=== PATIENT | male | born 1945 | race Caucasian/White ===

== ENCOUNTER 2021-12-30 10:28 | Inpatient (IN) ==
--- NOTE | 2021-12-30 11:23 | Emergency Department Note ---
History of Present Illness General Chief complaint: Throat Pain Stated complaint: SWOLLEN THROAT, HARD TO SWALLOW Time Seen by Provider: 12/30/21 11:03 Source: patient History of Present Illness Provider complaint: Difficulty swallowing Onset (ago): year(s) Location: neck Radiation: non-radiation Pain Consistency: + constant Maximum Pain Intensity: 4 Quality: + other (Difficulty swallowing) Relieved By: + none Associated symptoms: + chest pain, + headaches (Slight headache from vomiting), + nausea/vomiting and + shortness of breath; no cough or no fever/chills This is a 76-year-old male who presents with difficulty swallowing. He states that he has a history of throat cancer in 2000. He had radiation therapy and surgery as well as chemotherapy and was treated. About 3 to 4 years ago he started having difficulty swallowing pills. He had a choking episode in [place]. He was evaluated and found to have scar tissue leading to difficulty swallowing. The patient has had difficulty swallowing since then and has to be very careful when he eats. Over the past 2 days his swallowing got worse and he is unable to keep down any liquids or solids. He tries to swallow them but they come right back up. He drinks liquid and they come out of his nose. He has not been able to keep anything down. He does complain of chest pain which started 2 days ago in the lower portion of his chest. He cannot describe it. He also states that he has difficulty taking a deep breath. He denies any fevers or cold symptoms. He has no pain to his neck or his throat. He denies any abdominal pain or diarrhea or black or bloody stools. He did urinate prior to coming here but that his urine was dark. He has a prior history of carotid endarterectomy. He denies any history of CAD but his daughter states that he has a "weak heart." He has a history of hypertension. He has not been able to take his pills for the past 2 days. Home Medications Medication Instructions Recorded Confirmed Type Lactobacillus acidophilus 0 mmu cells PO QAM 12/30/21 12/30/21 History (Acidophilus) ascorbic acid (vitamin C) 1,000 mg 0 mg PO QAM 12/30/21 12/30/21 History tablet (Vitamin C) atorvastatin 40 mg tablet 40 mg PO QAM 12/30/21 12/30/21 History carvedilol 3.125 mg tablet 3.125 mg PO BID 12/30/21 12/30/21 History cholecalciferol (vitamin D3) 25 0 mcg PO QAM 12/30/21 12/30/21 History mcg (1,000 unit) capsule (Vitamin D3) clopidogrel 75 mg tablet 75 mg PO QDL 12/30/21 12/30/21 History ezetimibe 10 mg tablet 10 mg PO HS 12/30/21 12/30/21 History famotidine 20 mg tablet 20 mg PO HS 12/30/21 12/30/21 History levothyroxine 100 mcg tablet 100 mcg PO DAILYBB 12/30/21 12/30/21 History (Euthyrox) spironolactone 25 mg tablet 12.5 mg PO QAM 12/30/21 12/30/21 History sulfamethoxazole 800 1 tab PO QAM 12/30/21 12/30/21 History mg-trimethoprim 160 mg tablet vitamin B complex 1 tab PO QAM 12/30/21 12/30/21 History Allergies Allergy/AdvReac Type Severity Reaction Status Date / Time No Known Allergies Allergy Unverified 12/30/21 14:02 Past Med/Surg History Medical History (Updated 12/30/21 @ 16:58 by Chaz Martin MD) History of colon cancer History of throat cancer Hypertension Throat cancer Surgical History (Updated 12/30/21 @ 13:54 by Wilton Linares MD) H/O carotid endarterectomy History of bilateral knee replacement History of partial colectomy Social History Smoking Status: Former smoker Second Hand Exposure: No; Do You Dip or Chew Tobacco: No; Hx Alcohol Use: No Hx Substance Use: No Preferred Language: [place] Communication Ability: Effective Deputy Editor In Chief Required: No Beliefs That Will Affect Care: None Current Living Situation: Family Other Information That Helps Us Care for You: No Feels Safe at Home: Yes Safety Concerns: Feels Safe At This Time Assistive Devices: Denture - Upper, Denture - Lower, Glasses, Hearing Aid - Bilateral and Hearing Aid - Left Review of Systems See HPI for pertinent positives & negatives. and A total of 10 systems reviewed and were otherwise negative Physical Exam Vital Signs Vital Signs - 24 hr 12/30/21 10:29 12/30/21 10:32 12/30/21 12:00 Temperature 36.7 C Temperature Source Temporal Artery Scan Pulse Rate 54 L Pulse Rate [Apical] 108 H 79 Respiratory Rate 18 18 18 Respiratory Effort / Characteristics Non-Labored Non-Labored Respiratory Depth Normal Normal Blood Pressure 153/84 H Blood Pressure [Left Arm] 173/109 H 163/102 H Blood Pressure Mean 107 Blood Pressure Mean [Left Arm] 130 122 Pulse Oximetry 94 93 93 Oxygen Delivery Method Room Air Room Air Sepsis Recent Fever Within 48 Hours No Sepsis New/Unexplained Change in Mental Status No Sepsis Action Taken by Nursing No Action Required Constitutional: Vital signs reviewed. Eyes: Pupils are equal round reactive to light. Conjunctiva are noninjected. ENT: Pharynx is clear without erythema or exudate. Mucous membranes are dry. Postsurgical changes left neck. No tenderness to the larynx. No masses palpable. No erythema or swelling to the neck. Bony hypertrophy to the proximal left clavicle without tenderness or erythema. Neck supple without meningeal signs. Respiratory: Clear to auscultation bilaterally. Breath sounds are equal bilaterally. Cardiovascular: Regular rate and rhythm. No rubs or gallops. GI: Soft, nondistended and nontender. Bowel sounds are present. Musculoskeletal: No peripheral edema. No lower extremity tenderness. Integumentary: No cyanosis. or jaundice. Neurological: The patient is awake and alert. No focal deficits. Psychiatric: Normal affect. Course Administered Medications Potassium Chloride/Sodium Chloride (Normal Saline W/20 Meq Kcl) 20 meq in 1,000 mls @ 100 mls/hr IV .Q10H ALEJANDRO; Protocol Stop: 12/31/21 23:29 Last Admin: 12/30/21 18:14 Dose: 100 mls/hr Documented by: [id number] Ampicillin Sodium/Sulbactam Sodium 3,000 mg/ Sodium Chloride 108 mls @ 216 mls/hr IV Q6H ALEJANDRO; Protocol Stop: 01/06/22 17:59 Last Admin: 12/30/21 18:19 Dose: 216 mls/hr Documented by: [id number] Discontinued Medications Sodium Chloride (Nss) 500 mls @ 125 mls/hr IV .Q4H ALEJANDRO Stop: 01/29/22 11:14 Last Infusion: 12/30/21 18:22 Dose: 0 mls/hr Documented by: [id number] Admin: 12/30/21 15:35 Dose: 125 mls/hr Documented by: [id number] Infusion: 12/30/21 13:35 Dose: 0 mls/hr Documented by: [id number] Admin: 12/30/21 11:34 Dose: 125 mls/hr Documented by: [id number] Piperacillin Sod/Tazobactam Sod (Zosyn) 4.5 gm in 120 mls @ 240 mls/hr IV NOW ONE Stop: 12/30/21 13:11 Last Infusion: 12/30/21 14:16 Dose: 0 mls/hr Documented by: [id number] Admin: 12/30/21 13:35 Dose: 240 mls/hr Documented by: [id number] Potassium Chloride/Sodium Chloride (Nss+Kcl 20 Meq 1000ml) Confirm Administered Dose 20 meq IV .STK-MED ONE Stop: 12/30/21 17:12 Last Admin: 12/30/21 18:14 Dose: Not Given Documented by: [id number] Critical Care Time Critical Care Time: Yes Total Critical Care Time: 35 I have personally spent approximately 35 minutes of critical care time in the direct management of this patient. This includes bedside care, interpretation of diagnostic studies, and testing, discussion with consultants, patient, and family members, and other required patient management activities. These minutes are in excess of all separately billable procedures. Medical Decision Making Differential Diagnosis Throat cancer, adhesions, mediastinal mass, esophagitis, dehydration, Boerhaave syndrome Medical Records Attestation: I reviewed the patient's medical records. I did perform a limited focused review of portions of the patient's old chart on the electronic medical record. The patient has had no prior visits to this hospital. Home Medications Current Medication List: was personally reviewed by me Laboratory Data Attestation: I reviewed the patient's lab results. Result diagrams: 12/30/21 11:25 12/30/21 11:25 Lab Results 12/30/21 12/30/21 12/30/21 Range/Units 11:25 11:25 11:25 WBC 24.96 H (4.8-10.8) K/uL RBC 3.99 L (4.7-6.1) M/uL Hgb 12.8 L (14.0-18.0) g/dL Hct 37.9 L (42-52) % MCV 95.0 (80-100) fL MCH 32.1 (25-34) pg MCHC 33.8 (32-36) g/dL RDW Std Deviation 49.5 H (36.4-46.3) fL RDW Coeff of [place]ber[place] 14.3 (11.5-14.5) % Plt Count 178 (130-400) K/uL MPV 12.2 H (7.4-10.4) fL Immature Gran % (Auto) 0.4 % Neut % (Auto) 90.1 % Lymph % (Auto) 3.4 % Blount % (Auto) 6.1 % Eos % (Auto) 0.0 % Baso % (Auto) 0.0 % Neut # (Auto) 22.50 H (1.4-6.5) K/uL Lymph # (Auto) 0.84 L (1.2-3.4) K/uL Blount # (Auto) 1.52 H (0.11-0.59) K/uL Eos # (Auto) 0.00 (0-0.5) K/uL Baso # (Auto) 0.01 (0-0.2) K/uL Immature Gran # (Auto) 0.09 H (0.00-0.02) K/uL PT 12.5 H (9.0-12.0) Seconds INR 1.2 H (0.9-1.1) APTT 31.2 H (21.0-31.0) Seconds PTT Ratio 1.1 Sodium 140 (136-145) mmol/L Potassium 4.6 (3.5-5.1) mmol/L Chloride 104 (98-107) mmol/L Carbon Dioxide 26 (21-32) mmol/L Anion Gap 10 (3-11) BUN 39 H (6-23) mg/dl Creatinine 1.72 H (0.6-1.4) mg/dl Est Cr Clr Drug Dosing 37.7 ml/min Est GFR ( Amer) 43.2 ml/min Est GFR (Non-Af Amer) 37.3 ml/min BUN/Creatinine Ratio 22.7 H (10-20) Glucose 116 H (70-99(Fasting)) mg/dl Lactate (0.4-2.0) mmol/L Calcium 10.0 (8.5-10.1) mg/dl Total Bilirubin 0.9 (0.2-1.0) mg/dl AST 22 (13-39) U/L ALT 20 (7-52) U/L Alkaline Phosphatase 52 (34-104) U/L Troponin I High Sens 61.9 H* (0-20) pg/ml Total Protein 7.4 (6.0-8.3) gm/dl Albumin 4.0 (3.4-5.0) gm/dl Globulin 3.4 (2.5-4.0) gm/dl Albumin/Globulin Ratio 1.2 (0.9-2) SARS-CoV-2, RNA, NAAT (NEGATIVE) 12/30/21 12/30/21 Range/Units 12:48 13:02 WBC (4.8-10.8) K/uL RBC (4.7-6.1) M/uL Hgb (14.0-18.0) g/dL Hct (42-52) % MCV (80-100) fL MCH (25-34) pg MCHC (32-36) g/dL RDW Std Deviation (36.4-46.3) fL RDW Coeff of Kymberly (11.5-14.5) % Plt Count (130-400) K/uL MPV (7.4-10.4) fL Immature Gran % (Auto) % Neut % (Auto) % Lymph % (Auto) % Blount % (Auto) % Eos % (Auto) % Baso % (Auto) % Neut # (Auto) (1.4-6.5) K/uL Lymph # (Auto) (1.2-3.4) K/uL Blount # (Auto) (0.11-0.59) K/uL Eos # (Auto) (0-0.5) K/uL Baso # (Auto) (0-0.2) K/uL Immature Gran # (Auto) (0.00-0.02) K/uL PT (9.0-12.0) Seconds INR (0.9-1.1) APTT (21.0-31.0) Seconds PTT Ratio Sodium (136-145) mmol/L Potassium (3.5-5.1) mmol/L Chloride (98-107) mmol/L Carbon Dioxide (21-32) mmol/L Anion Gap (3-11) BUN (6-23) mg/dl Creatinine (0.6-1.4) mg/dl Est Cr Clr Drug Dosing ml/min Est GFR ( Amer) ml/min Est GFR (Non-Af Amer) ml/min BUN/Creatinine Ratio (10-20) Glucose (70-99(Fasting)) mg/dl Lactate 1.2 (0.4-2.0) mmol/L Calcium (8.5-10.1) mg/dl Total Bilirubin (0.2-1.0) mg/dl AST (13-39) U/L ALT (7-52) U/L Alkaline Phosphatase (34-104) U/L Troponin I High Sens (0-20) pg/ml Total Protein (6.0-8.3) gm/dl Albumin (3.4-5.0) gm/dl Globulin (2.5-4.0) gm/dl Albumin/Globulin Ratio (0.9-2) SARS-CoV-2, RNA, NAAT NEGATIVE (NEGATIVE) Imaging Data Radiologist's Impression: Chest CT 12/30/21 11:13 CT chest diagnostic wo con CT DOSE: 574.94 mGycm CLINICAL HISTORY: 76 years-old Male with cp eval for mass. Acute atypical chest pain TECHNIQUE: Multiaxial CT images of the chest were performed without contrast. A dose lowering technique was utilized adhering to the principles of ALARA. COMPARISON: CT soft tissue neck of same day FINDINGS: No pathologically enlarged lymph nodes are identified. The heart is mildly enlarged with extensive coronary artery calcifications. Atherosclerosis of the thoracic aorta without aneurysm. No pneumothorax or pleural effusion. Reticular interstitial opacities with intermixed extensive centrilobular groundglass and consolidative opacities are noted within a mid to lower lung zone prominent distribution with relative sparing of the upper lung zones. Mild associated t racheobronchial secretions with bibasilar bronchial wall thickening. Mildly distended fluid/debris filled esophagus. Intraluminal radiodense structure within the mid esophageal lumen may represent a pill fragment. Cholecystectomy. Calcified granulomata of the liver. Gynecomastia. Indeterminate subcutaneous 1.9 cm soft tissue attenuating lesion of the left posterior should er. Degenerative changes of the shoulders and spine. IMPRESSION: 1. Extensive mid to lower lung zone reticular nodular opacities are suggestive of an infectious or inflammatory pneumonitis. Follow-up imaging following treatment course is recommended. 2. No pleural effusion or lymphadenopathy. 3. Mild tracheobronchial secretions. ACT 112: Negative or not required by law. Electronically signed by: Zak Puri M.D. 12/30/2021 12:29 PM Soft Tissue Neck CT 12/30/21 11:13 CT soft tissue neck wo con CLINICAL HISTORY: throat CA eval for mass/recurrence Technique: Axial CT images of the soft tissues of the neck were obtained following intravenous administration of 100 cc of Omnipaque 300. Automated dose lowering techniques and/or adjustment according to patient size were utilized for this exam. CT DOSE: 360.38 mGycm Comparison: None available at the time of this dictation. Findings: There are no masses or inflammatory changes seen within the soft tissues of the neck. The oropharynx, hypopharynx, larynx, and trachea are patent. No enlarged lymph nodes are seen. The thyroid is diminutive. Bilateral carotid stents are seen. Prominence of the esophagus is incidentally noted. Imaged portions of the brain parenchyma are unremarkable. The paranasal sinuses and mastoid air cells are normal in appearance. Impression: 1. No findings are seen to suggest recurrent or metastatic disease. The trachea and esophagus are patent. 2. Prominence of the esophagus is nonspecific, clinical correlation is recomm ended to exclude achalasia or dysmotility. ACT 112: Negative or not required by law. Electronically signed by: Tyler Lopez M.D. 12/30/2021 12:07 PM ECG Data Attestation: I personally reviewed and interpreted this ECG as follows: Indication: + chest pain Rate (beats per minute): 89 Rhythm: + normal sinus ECG Intervals/blocks: + Left bundle branch block ECG [place]: + Left axis deviation ECG Findings: + PVCs (Bigeminy), + Bigeminy and + Other (No concordant ST elevations) Comparison ECG Date: no prior available MDM Narrative I did evaluate the patient as noted above. The patient has a history of throat cancer and has developed severe dysphagia for the past 3 days for both solids and liquids. He also developed chest pain after vomiting. IV access was established. I did treat him with normal saline IV. I did place an order for continuous cardiac monitoring. The monitor showed normal sinus rhythm with frequent PVCs in the pattern of bigeminy at a rate of 78 bpm. I did order and personally review the patient's 12-lead EKG as described above. He has a left bundle branch block with bigeminy. No old EKGs available for comparison. I did order a urine analysis. I did order and review the patient's blood work as noted in the electronic medical record. His white count shows a significant elevation at 25,000. Hemoglobin is 12.8. Platelet count is 178. CMP shows acute kidney injury with a BUN of 39 and a creatinine of 1.7. High-sensitivity troponin is elevated at 62. LFTs are unremarkable. I did order a CT of the soft tissue neck and chest. I did review the images myself as well as the radiology report as described above. There is no evidence of recurrence of his throat cancer. He does have significant debris in the esophagus with mild distention. He also has significant inflammatory infectious findings in the lower lungs. I did discuss the test results with the patient and his daughters. I did order blood cultures and he was given IV Zosyn for aspiration pneumonia. His troponin is minimally elevated. I suspect his chest pain is likely from pneumonia. He does have an abnormal EKG but I do not have an old one to compare with. I did order a second troponin which is currently pending. I did discuss the case with the hospitalist and case investigator. He will require repeat cardiac biomarkers and GI consultation. While waiting for bed the nurse informed me that he had oxygen desaturation. I did go to see the patient. Is placed on 2 L of oxygen via nasal cannula. He states he is breathing much better than he was before. He is speaking more freely as well. His throat shows no signs of angioedema. He subjectively feels much better. We will continue to keep him on oxygen. I did inform the hospitalist. Impression & Plan REUBEN (acute kidney injury), Aspiration pneumonia, Dysphagia, Elevated troponin, Bigeminy, Abnormal ECG, Hypoxia Discharge Plan Visit Data Chief Complaint: Throat Pain Stated Complaint: SWOLLEN THROAT, HARD TO SWALLOW ED Provider: Chaz Martin Discharge Problem: REUBEN (acute kidney injury), Aspiration pneumonia, Dysphagia, Elevated troponin, Bigeminy, Abnormal ECG, Hypoxia Patient Disposition: Admitted As Inpatient Discharge Instructions Interventions: ED Discharge Assessment Last Done: 12/30/21 16:59 Discharge Problem: Aspiration pneumonia Qualifiers: Aspiration pneumonia type: due to vomit Laterality: bilateral Lung location: lo wer lobe of lung Qualified Code(s): J69.0 - Pneumonitis due to inhalation of food and vomit Dysphagia Qualifiers: Dysphagia type: unspecified Qualified Code(s): R13.10 - Dysphagia, unspecified
[2021-12-30] MEDS: SODIUM CHLORIDE 0.9% 500 ML IV SCH ×2 (11:34→15:35)
[2021-12-30 11:49] LABS: Hematocrit (blood only) 37.9 % (42-52); Hemoglobin 12.8 g/dL (14.0-18.0); Mean Corpuscular Hemoglobin 32.1 pg (25-34); Mean Corpuscular Hgb Conc 33.8 g/dL (32-36); Mean Platelet Volume 12.2 fL (7.4-10.4); Platelet Count 178 K/uL (130-400); RDW Coefficient of Variation 14.3 % (11.5-14.5); RDW Standard Deviation 49.5 fL (36.4-46.3); Red Blood Count 3.99 M/uL (4.7-6.1); White Blood Count 24.96 K/uL (4.8-10.8)
[2021-12-30 11:59] LABS: INR 1.2 (0.9-1.1); Partial Thromboplastin Ratio 1.1; Partial Thromboplastin Time 31.2 Seconds (21.0-31.0); Prothrombin Time 12.5 Seconds (9.0-12.0)
--- NOTE | 2021-12-30 12:08 | CT Scan Report ---
CT soft tissue neck wo con CLINICAL HISTORY: throat CA eval for mass/recurrence Technique: Axial CT images of the soft tissues of the neck were obtained following intravenous admini stration of 100 cc of Omnipaque 300. Automated dose lowering techniques and/or adjustment according t o patient size were utilized for this exam. CT DOSE: 360.38 mGycm Comparison: None available at the time of this dictation. Findings: There are no masses or inflammatory changes seen within the soft tissues of the neck. The oropharynx, hypopharynx, larynx, and trachea are patent. No enlarged lymph nodes are seen. The thyroid is diminu tive. Bilateral carotid stents are seen. Prominence of the esophagus is incidentally noted. Imaged portions of the brain parenchyma are unremarkable. The paranasal sinuses and mastoid air cell s are normal in appearance. Impression: 1. No findings are seen to suggest recurrent or metastatic disease. The trachea and esophagus are pa tent. 2. Prominence of the esophagus is nonspecific, clinical correlation is recommended to exclude achala yaneli or dysmotility. ACT 112: Negative or not required by law. Electronically signed by: Tyler Lopez M.D. 12/30/2021 12:07 PM
[2021-12-30 12:09] LABS: Basophils # (auto) 0.01 K/uL (0-0.2); Immature Granulocytes # (auto) 0.09 K/uL (0.00-0.02); Immature Granulocytes % (auto) 0.4 %; Lymphocytes # (auto) 0.84 K/uL (1.2-3.4); Lymphocytes % (auto) 3.4 %; Monocytes # (auto) 1.52 K/uL (0.11-0.59); Monocytes % (auto) 6.1 %; Neutrophils % (auto) 90.1 %
[2021-12-30 12:18] LABS: Troponin I High Sensitivity 61.9 pg/ml (0-20)
[2021-12-30 12:24] LABS: Albumin Globulin Ratio 1.2 (0.9-2); BUN Creatinine Ratio 22.7 (10-20); Bilirubin,Total 0.9 mg/dl (0.2-1.0); Creatinine Clr Calc Pharmacy 37.7 ml/min; Est GFR (African American) 43.2 ml/min; Est GFR (Non-African American) 37.3 ml/min; Globulin 3.4 gm/dl (2.5-4.0); Potassium 4.6 mmol/L (3.5-5.1); Total Protein 7.4 gm/dl (6.0-8.3)
--- NOTE | 2021-12-30 12:32 | CT Scan Report ---
CT chest diagnostic wo con CT DOSE: 574.94 mGycm CLINICAL HISTORY: 76 years-old Male with cp eval for mass. Acute atypical chest pain TECHNIQUE: Multiaxial CT images of the chest were performed without contrast. A dose lowering techni que was utilized adhering to the principles of ALARA. COMPARISON: CT soft tissue neck of same day FINDINGS: No pathologically enlarged lymph nodes are identified. The heart is mildly enlarged with extensive co ronary artery calcifications. Atherosclerosis of the thoracic aorta without aneurysm. No pneumothorax or pleural effusion. Reticular interstitial opacities with intermixed extensive centrilobular ground glass and consolidative opacities are noted within a mid to lower lung zone prominent distribution wi th relative sparing of the upper lung zones. Mild associated tracheobronchial secretions with bibasil ar bronchial wall thickening. Mildly distended fluid/debris filled esophagus. Intraluminal radiodense structure within the mid esop hageal lumen may represent a pill fragment. Cholecystectomy. Calcified granulomata of the liver. Gyne comastia. Indeterminate subcutaneous 1.9 cm soft tissue attenuating lesion of the left posterior shou lder. Degenerative changes of the shoulders and spine. IMPRESSION: 1. Extensive mid to lower lung zone reticular nodular opacities are suggestive of an infectious or in flammatory pneumonitis. Follow-up imaging following treatment course is recommended. 2. No pleural effusion or lymphadenopathy. 3. Mild tracheobronchial secretions. ACT 112: Negative or not required by law. Electronically signed by: Zak Puri M.D. 12/30/2021 12:29 PM
[2021-12-30] MEDS ORDERED: PIPERACILLIN/TAZOBACTAM 4.5 GM/120 ML BAG IV ONE (12:42)
--- NOTE | 2021-12-30 13:07 | History & Physical Report ---
Date of Service December 30, 2021 Assessment & Plan (1) Dysphagia: (2) Elevated troponin: (3) Bigeminy: (4) H/O carotid endarterectomy: (5) Hypertension: (6) History of throat cancer: (7) Aspiration pneumonia: (8) REUBEN (acute kidney injury): Plan: Wilton is a 76-year-old male with a past medical history of carotid endarterectomy and stenting, hx of throat cancer with surgery/chemo/radiation in 2000 in [place], hypertension, and unclear cardiac history who receives medical care in [place] who is visiting family in [place] and who presents with dysphagia the inability to swallow liquids/solids/pills in the last 4 days. Dysphagia Complete inability to swallow solids, liquids, or pills for the last 4 days Patient does endorse some gradually worsening tolerance to swallowing, but was able to eat half a cheeseburger without difficulty approximately 1 week ago -No evidence of recurrence of malignancy on imaging Soft Tissue neck CT: 1. No findings are seen to suggest recurrent or metastatic disease. The trachea and esophagus are patent. 2. Prominence of the esophagus is nonspecific, clinical correlation is recommended to exclude achalasia or dysmotility. CT-Ch: Mildly distended fluid/debris filled esophagus. Intraluminal radiodense structure within the mid esophageal lumen may represent a pill fragment. Cholecystectomy. Calcified granulomata of the liver. Gynecomastia. Indeterminate subcutaneous 1.9 cm soft tissue attenuating lesion of the left posterior shoulder. Degenerative changes of the shoulders and spine. Extensive mid to lower lung zone reticular nodular opacities are suggestive of an infectious or inflammatory pneumonitis. Follow-up imaging following treatment course is recommended. No pleural effusion or lymphadenopathy. Mild tracheobronchial secretions. N.p.o. - GI Consutled. Last EGD/[place] ~2 years ago for ?GIB in [place], no ulcers or abnormalities noted per pt Aspiration pneumonia With leukocytosis to 24, CT findings as above In the setting of dysphagia Put on Zosyn in ER - Continued on Unasyn No hypoxia Chest discomfort Epigastric Unclear cardiac history per discussion with patient. He thinks he may or may not have needed a valve stent, was following with his provider in [place] for this. Does not think he has any coronary disease, is not sure if he has had any abnormalities on EKG before. [place] is reaching out for med reconciliation and baseline EKG and cardiac notes if available from provider in [place] Is on Plavix therapy narrowed from dual antiplatelet therapy related to carotid stents per patient. No history of cardiac stents Troponin slightly elevated on admission,? Demand ischemia in the setting of dehydration EKG shows sinus rhythm with ventricular bigeminy and left bundle branch block. No concordant ST elevations or excessively dis-concordant ST elevations appreciated Troponin trended, attempting to obtain EKG for comparison as noted Carvedilol 3.125 mg held while NPO. MTP Every 6 hours as needed IV order placed for beta-magi withdrawal while intolerant of p.o. ASA 81 mg and isosorbide were stopped as outpatient Continue Plavix when able to tolerate p.o. 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 We will convert to Synthroid IV at 30% dose reduction while n.p.o. HTN - MTP as above, meds held while NPO as above. 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 If I bend over just runs out my mouth. Not eating nothing." Rapidly worsening 4 days ago. Prior to that was having some difficulty progressive with solids and liquids and clearing spit. Seems to have been building up for a few weeks but really got worse quickly starting on Tuesday with compelte intolerance to food, water, and pills. Regurgitates food immediately on trying, denies N/V. Last time he could eat/drink relatively OK was ~1 week ago, was able to eat a cheeseburger (half) withotu n/v/pain. Patient is visiting from [place]. History of throat cancer 2000, chemo/radiation/surgery. Went well at the time. Was done in [place]. +Nose dripping constnatly. Can't cough well. Cannot clear saliva well with swallowing. No nausea/vomiting No diarrhea/constipation + weight loss over the last several months with very poor intake. Endorses mild shortness of breath and fatigue, both seems constant in the last day Endorses mild constant epigastric pain with a little in his chest unchagned in the last day or two Last endoscopy in 2020 in [place] for a GIB (no ulcers were seen) in [place]. Hx of valve disease, not sure of the details. Told he has a 'weak heart and could use a stend in the valve or heart, but not sure. Has 2 carotid stents.' No history of heart attacks Pt is not sure was his normal EKG is like PCP is Dr. Ayala in [place], [place]. Meds by phone review: Levothyroxine 100mcg Nicola 25mg Ezetimbe 10mg Atorvastatin 40mg Carvedilol 3.125mg Isosorbide mono 20 Aspirin 81 STOPPED for plaavix monotherapy. plavix 75mg enalapril 5mg WAS STOPPED. Isosorbide Mononitrate was STOPPED. Bilat knee replacement 1994. Carotid stents. Colon cancer with resection at [place]. Has fmaily in [place] [facility]. No PCP here. Medical History: Reviewed Medications: REviewed pts record (has phone list available at bedside). Surgical History: Reviewed Allergies: Reviewed Social History: No tobacco product use. No alcohol use, no RR drug use. Code Status: Surrogate would be Tyra Lancaster . DNR/DNI per patient. Past Med/Surg History Medical History (Updated 12/30/21 @ 13:54 by Wilton Linares MD) History of colon cancer History of throat cancer Hypertension Throat cancer Surgical History (Updated 12/30/21 @ 13:54 by Wilton Linares MD) H/O carotid endarterectomy History of bilateral knee replacement History of partial colectomy Social History Smoking Status: Former smoker Feels Safe at Home: Yes Review of Systems Review of Systems: All systems reviewed & are unremarkable except as noted in HPI & below Physical Exam Physical Exam: General: A&Ox3. NAD. Cooperative. HEENT: Atraumatic, normocephalic. Visionan dhearing grossly intact, [place]. PERLAA. Pulm: Coarse in the bases bilaterally, otherwise CTAB A&P. -wheezes, -rales, - rhonchi. Symmetrical chest rise. No increase in work of breathing. No respiratory distress. Cardiac: RRR, +sm. Radial pulses intact and symmetrical. Abdominal: Nontender, nondistended, soft. BS present. Ext: Warm, Dry. Trace pitting edema of ankles bilaterally chronic per pt. Post operative knee incisions well healed. Results & Data Results & Data ([facility]) Vital Signs (Past 12 Hours) Vital Signs Temp Pulse Pulse Resp BP BP Pulse Ox 12/30/21 12:00 79 18 163/102 H 93 12/30/21 10:32 36.7 C 54 L 18 153/84 H 93 12/30/21 10:29 108 H 18 173/109 H 94 PG Care Time/CCT Total # of Minutes Spent Total Time Spent with Patient: Total time spent is greater than 50% in coordination of care (as documented) at patient's floor/unit and/or counseling patient: Coding Level of Care Code 88436 Initial Inpt Care Lvl 3 Diagnoses Dysphagia R13.10 Dysphagia type: unspecified Elevated troponin R77.8 Bigeminy I49.8 H/O carotid endarterectomy Z98.890 Hypertension I10 History of throat cancer Z85.819 Aspiration pneumonia J69.0 Aspiration pneumonia type: due to vomit Laterality: bilateral Lung location: lower lobe of lung REUBEN (acute kidney injury) N17.9 (1) Dysphagia Dysphagia type: unspecified Qualified Code(s): R13.10 - Dysphagia, unspecified (2) Aspiration pneumonia Aspiration pneumonia type: due to vomit Laterality: bilateral Lung location: lower lobe of lung Qualified Code(s): J69.0 - Pneumonitis due to inhalation of food and vomit
[2021-12-30] MEDS ORDERED: METOPROLOL TARTRATE 1 MG/ML VIAL IV PRN (16:52)
[2021-12-30] MEDS ORDERED: NSS+KCL 20 MEQ 1000ML IV ONE (17:11)
[2021-12-30] MEDS: NSS + 20MEQ KCL 20 MEQ/1,000 ML BAG IV SCH (18:14)
[2021-12-30] MEDS: AMPICILLIN/SULBACTAM SOD 3,000 MG in 0.9 % SODIUM CHLORIDE 100 ML IV SCH (18:19)
[2021-12-30] MEDS ORDERED: NITROGLYCERIN SL 0.4 MG/TAB TAB SL PRN (18:27)
[2021-12-30] MEDS: LEVOTHYROXINE SODIUM 75 MCG in SYRINGE 0 ML IV SCH (19:33)
[2021-12-30] MEDS: HEPARIN SOD 5,000 UNIT/0.5 ML VIAL SQ SCH (21:54)
[2021-12-31] MEDS: AMPICILLIN/SULBACTAM SOD 3,000 MG in 0.9 % SODIUM CHLORIDE 100 ML IV SCH ×5 (00:23→22:40)
[2021-12-31] MEDS: NSS + 20MEQ KCL 20 MEQ/1,000 ML BAG IV SCH ×2 (04:32→18:02)
[2021-12-31 05:01] LABS: BUN Creatinine Ratio 27.5 (10-20); Calcium 8.9 mg/dl (8.5-10.1); Creatinine Clr Calc Pharmacy 49.5 ml/min; Est GFR (Non-African American) 51.8 ml/min; Potassium 4.1 mmol/L (3.5-5.1)
[2021-12-31 05:23] LABS: Basophils # (auto) 0.01 K/uL (0-0.2); Basophils % (auto) 0.1 %; Eosinophils # (auto) 0.02 K/uL (0-0.5); Eosinophils % (auto) 0.1 %; Hematocrit (blood only) 34.1 % (42-52); Hemoglobin 11.2 g/dL (14.0-18.0); Immature Granulocytes # (auto) 0.05 K/uL (0.00-0.02); Immature Granulocytes % (auto) 0.3 %; Lymphocytes # (auto) 1.03 K/uL (1.2-3.4); Lymphocytes % (auto) 6.9 %; Mean Corpuscular Hemoglobin 31.5 pg (25-34); Mean Corpuscular Hgb Conc 32.8 g/dL (32-36); Mean Corpuscular Volume 95.8 fL (80-100); Mean Platelet Volume 12.3 fL (7.4-10.4); Monocytes # (auto) 1.06 K/uL (0.11-0.59); Monocytes % (auto) 7.1 %; Neutrophils # (auto) 12.74 K/uL (1.4-6.5); Neutrophils % (auto) 85.5 %; Platelet Count 162 K/uL (130-400); RDW Coefficient of Variation 14.2 % (11.5-14.5); RDW Standard Deviation 49.9 fL (36.4-46.3); Red Blood Count 3.56 M/uL (4.7-6.1); White Blood Count 14.91 K/uL (4.8-10.8)
[2021-12-31] MEDS: HEPARIN SOD 5,000 UNIT/0.5 ML VIAL SQ SCH ×3 (06:02→21:14)
--- NOTE | 2021-12-31 09:50 | Gastrointestinal Consultation ---
Date of Consultation December 31, 2021 Assessment & Plan (1) Dysphagia: If patient is cleared by cardiology, can move forward with EGD for further evaluation today. Keep NPO for now. Supervising Physician Co-Signing Physician Notes I personally evaluated the patient and agree with the findings as documented by KWESI Carlson Exam: Constitutional: WD/WN, vitals as above General: EOM intact bilaterally Neck: normal visual inspection Respiratory: normal respiratory effort, lungs clear to auscultation Cardiovascular: RRR, no murmur, no edema Gastrointestinal: abdomennormal to inspection, nondistended, soft, nontender, no hepatosplenomegaly Musculoskeletal: no cyanosis, head normal to inspection Skin: no rashes, warm and dry Neurologic: moves all extremities Psychiatric: A and O x3, euthymic affect Proceed with EGD. risks/benefits and procedure discussed with patient, who agrees to proceed History of Present Illness Reason for Consultation: Dysphagia Attending Physician: Wilton Linares MD History of Present Illness Patient is a 76 yo male with PMH of throat cancer s/p radiation, chemo, surgery along with history of hypertension and carotid endarterectomy who presented to [facility] ED with complaints of difficulty swallowing. The patient admits that these issues have been chronically progressing, but 2 days ago he had a significant issue with swallowing food and liquid. He notes regurgitation of ingested material. He notes liquid coming out of his nose when he swallows. He notes he developed chest pain and difficulty taking deep breaths. This prompted him to seek ED evaluation. He denies fevers, chills, or sweats. He denies pain in his throat/neck. He denies abdominal pain, hematemesis, hematochezia. He notes he thinks he had an EGD in 2020 for a bleeding concern, but cannot remember the details of this. He does take Plavix daily. He denies PPI use. He denies heartburn or reflux. Upon admission, he was noted to have LBBB changes on EKG which were apparently seen on other EGDs in the past. His high sensitivity troponin was elevated to 59. CT soft tissues of the neck indicated a patent esophagus and trachea but noted prominence of the esophagus. CT chest demonstrates a concern for pneumonitis. Cardiology has been consulted for further assessment. Allergies Allergy/AdvReac Type Severity Reaction Status Date / Time No Known Allergies Allergy Unverified 12/30/21 14:02 Home Medications Medication Instructions Recorded Confirmed Type Lactobacillus acidophilus 0 mmu cells PO QAM 12/30/21 12/30/21 History (Acidophilus) ascorbic acid (vitamin C) 1,000 mg 0 mg PO QAM 12/30/21 12/30/21 History tablet (Vitamin C) atorvastatin 40 mg tablet 40 mg PO QAM 12/30/21 12/30/21 History carvedilol 3.125 mg tablet 3.125 mg PO BID 12/30/21 12/30/21 History cholecalciferol (vitamin D3) 25 0 mcg PO QAM 12/30/21 12/30/21 History mcg (1,000 unit) capsule (Vitamin D3) clopidogrel 75 mg tablet 75 mg PO QDL 12/30/21 12/30/21 History ezetimibe 10 mg tablet 10 mg PO HS 12/30/21 12/30/21 History famotidine 20 mg tablet 20 mg PO HS 12/30/21 12/30/21 History levothyroxine 100 mcg tablet 100 mcg PO DAILYBB 12/30/21 12/30/21 History (Euthyrox) spironolactone 25 mg tablet 12.5 mg PO QAM 12/30/21 12/30/21 History sulfamethoxazole 800 1 tab PO QAM 12/30/21 12/30/21 History mg-trimethoprim 160 mg tablet vitamin B complex 1 tab PO QAM 12/30/21 12/30/21 History Patient History Medical History History of colon cancer History of throat cancer Hypertension Throat cancer Surgical History H/O carotid endarterectomy History of bilateral knee replacement History of partial colectomy Social History Smoking Status: Former smoker Second Hand Exposure: No; Do You Dip or Chew Tobacco: No; Hx Alcohol Use: No Hx Substance Use: No Preferred Language: Lithuanian Communication Ability: Effective Equipment Lead Required: No Beliefs That Will Affect Care: None marital status: Current Living Situation: Family How many Children do You have: 5 Other Information That Helps Us Care for You: No Feels Safe at Home: Yes Safety Concerns: Feels Safe At This Time Assistive Devices: Cane and Walker Review of Systems Constitutional: no fever and no chills Respiratory: no cough and no dyspnea Gastrointestinal: + dysphagia; no abdominal pain, no nausea, no vomiting, no coffee ground emesis and no melena Psychiatric: no problem reported Physical Exam Constitutional: well developed Respiratory: normal respiratory effort Cardiovascular: Rate/Rhythm: regular rate Gastrointestinal (Abdomen): normal bowel sounds, soft, nontender, no hepatosplenomegaly Musculoskeletal: Head/Neck/Chest: normocephalic Psychiatric: Orientation: alert and oriented x 3 Results & Data ([facility]) Vital Signs (Past 12 Hours) Vital Signs Temp Pulse Pulse Resp BP Pulse Ox 12/31/21 07:26 79 12/31/21 07:13 36.4 C L 64 18 144/78 H 92 12/30/21 23:25 75 12/30/21 23:08 36.5 C 79 20 124/66 92 PG Care Time/CCT Total # of Minutes Spent Total Time Spent with Patient: Total time spent is greater than 50% in coordination of care (as documented) at patient's floor/unit and/or counseling patient: Coding Level of Care Code 73026 Initial Inpt Care Lvl 3 Diagnoses Dysphagia R13.10 Dysphagia type: unspecified (1) Dysphagia Dysphagia type: unspecified Qualified Code(s): R13.10 - Dysphagia, unspecified
--- NOTE | 2021-12-31 12:29 | Hospitalist Progress Note ---
Date of Service December 31, 2021 Assessment & Plan (1) Dysphagia: Plan: Wilton is a 76-year-old male with a past medical history of carotid endarterectomy and stenting, hx of throat cancer with surgery/chemo/radiation in 2000 in [place], hypertension, and unclear cardiac history who receives medical care in [place] who is visiting family in [place] and who presents with dysphagia the inability to swallow liquids/solids/pills in the last 4 days. 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 No findings are seen to suggest recurrent or metastatic disease. The trachea and esophagus are patent. 2. Prominence of the esophagus is nonspecific, clinical correlation is recommended to exclude achalasia or dysmotility. CT-Ch: Mildly distended fluid/debris filled esophagus. Intraluminal radiodense structure within the mid esophageal lumen may represent a pill fragment. Cholecystectomy. Calcified granulomata of the liver. Gynecomastia. Indeterminate subcutaneous 1.9 cm soft tissue attenuating lesion of the left posterior shoulder. Degenerative changes of the shoulders and spine. Extensive mid to lower lung zone reticular nodular opacities are suggestive of an infectious or inflammatory pneumonitis. Follow-up imaging following treatment course is recommended. No pleural effusion or lymphadenopathy. Mild tracheobronchial secretions. N.p.o. -Discomfort improved morning of 12/31 Pending EGD 12/31 Aspiration pneumonia With leukocytosis to 24, downtrending rapidly, - CT findings as above In the setting of dysphagia/regurgitation - Continue Unasyn No hypoxia Chest discomfort Epigastric discomfort has resolved this morning Per review of [place] provider's notes patient with a history of multivessel CAD, was not recommended for cardiac stenting per patient although cardiology note is not available for full review Is on Plavix therapy narrowed from dual antiplatelet therapy related to carotid stents ; No history of cardiac stents Troponin slightly elevated on admission, down trended consistent with volume depletion EKG shows sinus rhythm with ventricular bigeminy and left bundle branch block. No concordant ST elevations or excessively dis-concordant ST elevations appreciated EKG from PCPs office obtained, also shows bigeminy/LBBB similar to current Carvedilol 3.125 mg held while NPO. MTP Every 6 hours as needed IV order plac ed for beta-magi withdrawal while intolerant of p.o. ASA 81 mg and isosorbide were stopped as outpatient Continue Plavix when able to tolerate p.o. 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 We will convert to Synthroid IV at 30% dose reduction while n.p.o. HTN - MTP as above, meds held while NPO as above. 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 No chest pain/chest pressure. Did have an episode of emesis yesterday after which she felt much better. Is breathing comfortably and can take full deep breaths without any discomfort this morning. Has not tried food/liquids, but notes still has trouble swallowing saliva. Is anticipating EGD today. Denies bleeding. Review of Systems Review of Systems: All systems reviewed & are unremarkable except as noted in Subjective Physical Exam Physical Exam: General: A&Ox3. NAD. Cooperative. HEENT: Atraumatic, normocephalic. Visiona/hearing grossly intact, [place]. PERLAA. Pulm: Improved but still coarse in the bases bilaterally and improving with inspiration; otherwise CTAB A&P. -wheezes, -rales, -rhonchi. Symmetrical chest rise. No increase in work of breathing. No respiratory distress. Cardiac: RRR, +sm. Radial pulses intact and symmetrical. Abdominal: Nontender, nondistended, soft. BS present. Ext: Warm, Dry. Trace pitting edema of ankles bilaterally chronic per pt. Post operative knee incisions well healed. Results & Data Results & Data ([facility]) Vital Signs (Past 12 Hours) Vital Signs Temp Pulse Pulse Resp BP Pulse Ox 12/31/21 11:18 36.3 C L 50 L 18 155/66 H 96 12/31/21 07:26 79 12/31/21 07:13 36.4 C L 64 18 144/78 H 92 PG Care Time/CCT Total # of Minutes Spent Total Time Spent with Patient: Total time spent is greater than 50% in coordination of care (as documented) at patient's floor/unit and/or counseling patient: Coding Level of Care Code 47884 Subseq Hosp Care Lvl 2 Diagnoses Dysphagia R13.10 Dysphagia type: unspecified Elevated troponin R77.8 Bigeminy I49.8 H/O carotid endarterectomy Z98.890 Hypertension I10 History of throat cancer Z85.819 Aspiration pneumonia J69.0 Aspiration pneumonia type: due to vomit Laterality: bilateral Lung location: lower lobe of lung REUBEN (acute kidney injury) N17.9 (1) Dysphagia Dysphagia type: unspecified Qualified Code(s): R13.10 - Dysphagia, unspecified (2) Aspiration pneumonia Aspiration pneumonia type: due to vomit Laterality: bilateral Lung location: lower lobe of lung Qualified Code(s): J69.0 - Pneumonitis due to inhalation of food and vomit
[2021-12-31] MEDS ORDERED: LIDOCAINE 2% 2 ML VIAL/AMP(20MG/ML) INFIL ONE (14:15)
[2021-12-31] MEDS ORDERED: fentaNYL citrate 100 MCG/2 ML VIAL ONE (14:15)
[2021-12-31] MEDS ORDERED: PROPOFOL IV EMULSION 10 MG/ML 20 ML VIAL IV ONE (14:15)
[2021-12-31] MEDS ORDERED: SUCCINYLCHOLINE CHLORIDE 20 MG/ML 10 ML VIAL IV ONE (14:15)
[2021-12-31] MEDS ORDERED: ROCURONIUM BROMIDE 10 MG/ML 5 ML VIAL IV ONE (14:15)
[2021-12-31] MEDS ORDERED: PHENYLEPHRINE HCL 10 MG/ML VIAL ONE (14:15)
[2021-12-31] MEDS ORDERED: ePHEDrine sulfate 50 MG/ML AMP ONE (14:16)
--- NOTE | 2021-12-31 14:50 | Anesthesiology Consultation ---
Date of Service December 31, 2021 Assessment & Plan Chart Review Chart Review: Pending: Refer to Additional Notes / Consult section RIsk/benefit discussed Reasonable to move forward with urgent procedure Consults Requested medical appreciated input ASA [id number] Proposed Anesthesia Anesthesia Type: General Risk / Benefits Reviewed With: PT / POA / Parent / Guardian, Accepts Plan and Informed Consent Obtained Additional Comments: RSI induction for airway protection History Surgery Operation Date: 12/31/21 13:40 Proposed Procedures p Esophagogastroduodenoscopy - Pedro López MD Operation Date: 12/31/21 16:00 Proposed Procedures p Esophagogastroduodenoscopy Dr. López - ePdro López MD Height/Weight Height: 5 ft 11 in Weight: 80 kg Allergies Allergy/AdvReac Type Severity Reaction Status Date / Time No Known Allergies Allergy Unverified 12/30/21 14:02 Medications Home Medications Medication Instructions Recorded Confirmed Last Taken Lactobacillus acidophilus 0 mmu cells PO QAM 12/30/21 12/30/21 12/28/21 (Acidophilus) ascorbic acid (vitamin C) 1,000 mg 0 mg PO QAM 12/30/21 12/30/21 12/28/21 tablet (Vitamin C) atorvastatin 40 mg tablet 40 mg PO QAM 12/30/21 12/30/21 12/28/21 carvedilol 3.125 mg tablet 3.125 mg PO BID 12/30/21 12/30/21 12/28/21 cholecalciferol (vitamin D3) 25 0 mcg PO QAM 12/30/21 12/30/21 12/28/21 mcg (1,000 unit) capsule (Vitamin D3) clopidogrel 75 mg tablet 75 mg PO QDL 12/30/21 12/30/21 12/28/21 ezetimibe 10 mg tablet 10 mg PO HS 12/30/21 12/30/21 12/28/21 famotidine 20 mg tablet 20 mg PO HS 12/30/21 12/30/21 12/28/21 levothyroxine 100 mcg tablet 100 mcg PO DAILYBB 12/30/21 12/30/21 12/28/21 (Euthyrox) spironolactone 25 mg tablet 12.5 mg PO QAM 12/30/21 12/30/21 12/28/21 sulfamethoxazole 800 1 tab PO QAM 12/30/21 12/30/21 12/28/21 mg-trimethoprim 160 mg tablet vitamin B complex 1 tab PO QAM 12/30/21 12/30/21 12/28/21 Active Medications Generic Name Dose Route Start Last Admin Trade Name Douglas PRN Reason Stop Dose Admin Heparin Sodium (Porcine) 5,000 units 12/30/21 22:00 12/31/21 06:02 Heparin Sod 5,000 Unit/0.5 Ml Vial SQ 01/29/22 21:59 5,000 units Q8 ALEJANDRO Administration Potassium Chloride/Sodium Chloride 20 meq in 1,000 mls @ 100 mls/hr 12/30/21 17:30 12/31/21 04:32 Normal Saline W/20 Meq Kcl IV 12/31/21 23:29 100 mls/hr .Q10H ALEJANDRO Administration Protocol Ampicillin Sodium/Sulbactam 108 mls @ 216 mls/hr 12/30/21 18:00 12/31/21 12:54 Sodium 3,000 mg/ Sodium IV 01/06/22 17:59 Infused Chloride Q6H ALEJANDRO Infusion Protocol Levothyroxine Sodium 75 mcg/ 3.75 mls @ 1.875 mls/min 12/30/21 19:00 12/30/21 19:33 Syringe IV 01/29/22 18:59 1.875 mls/min Q72H ALEJANDRO Administration Protocol NPO Date Last Intake of Fluids: 12/31/21 Last Intake of Fluids Comment: fluid in esophagus-full stomach Past Medical History Medical History History of colon cancer History of throat cancer Hypertension Throat cancer Exercise / Class Metabolic Activity II 4-5 Yardwork/Stairs/Walk up hill Past Surgical History Surgical History H/O carotid endarterectomy History of bilateral knee replacement History of partial colectomy Past Anesthesia History No Hx of Anesthesia Complications and Difficult Airway hx of oropharyngeal CA- will use indirect laryngoscopy (video)for intubation History of PONV No Hx of PONV and No Hx of Motion Sickness Social History Smoking Status: Former smoker tobacco type: cigarettes Do You Dip or Chew Tobacco: No Hx Alcohol Use: No Hx Substance Use: No Review of Systems ROS Unobtainable: All systems reviewed & are unremarkable except as noted in HPI & below Constitutional: + weight loss Eyes: as per Subjective / HPI Ear, Nose, Mouth, Throat: as per Subjective / HPI Respiratory: as per Subjective / HPI Cardiovascular: as per Subjective / HPI Additional Comments: elevated troponin Medicine feel related to volume status. Discussed risk/benefit of proceeding without cardiology involvement at this point. Likely medically optimized for procedure. Family and patient in agreement. Appreciated medicine input. No recent cardiac Sx Gastrointestinal: as per Subjective / HPI and + dysphagia Genitourinary (Male): + as per Subjective / HPI Integumentary: as per Subjective / HPI Neurologic: as per Subjective / HPI Psychiatric: as per Subjective / HPI Endocrine: as per Subjective / HPI Hematologic / Lymphatic: as per Subjective / HPI Physical Exam Vital Signs Last Vital Signs Temp 36.3 C L 12/31/21 11:18 Pulse 50 L 12/31/21 11:18 Resp 18 12/31/21 11:18 BP 155/66 H 12/31/21 11:18 Pulse Ox 96 12/31/21 11:18 Constitutional + cachectic ENMT Mouth: + edentulous Thyromental Distance: < 3.5 Finger Breadths Mallampati Class: II some soft tisssue abnl in oropharynx (uvula distorted/absent) Neck + limited neck extension Respiratory normal respiratory effort Cardiovascular Rate/Rhythm: regular rhythm irregular rhythm Musculoskeletal Spine: + limited cervical ROM Extremities: extremities normal to inspection Neurologic moves all extremities Psychiatric Orientation: alert and oriented x 3 Testing Laboratory Results 12/31/21 04:03 12/31/21 04:03 PT 12.5 Seconds (9.0-12.0) H 12/30/21 11:25 INR 1.2 (0.9-1.1) H 12/30/21 11:25 APTT 31.2 Seconds (21.0-31.0) H 12/30/21 11:25 12/30/21 12:58 Aerobic Blood Culture - Preliminary Blood No growth in Aerobic bottle after 24 hours. Anaerobic Blood Culture - Preliminary No growth in Anaerobic bottle after 24 hours. 12/30/21 12:50 Aerobic Blood Culture - Preliminary Blood No growth in Aerobic bottle after 24 hours. Anaerobic Blood Culture - Preliminary No growth in Anaerobic bottle after 24 hours.
--- NOTE | 2021-12-31 15:19 | GI REPORT ---
Patient Name: Wilton Lancaster Procedure Date: 12/31/2021 2:16 PM Date of : 1945 Admit Type: Inpatient Age: 76 Gender: Male Attending MD: Pedro López MD Procedure: Upper GI endoscopy Providers: Pedro López MD Referring MD: Referred Self, Wilton Linares Md Indications: Dysphagia, Abnormal CT of the GI tract Medicines: Monitored Anesthesia Care Complications: No immediate complications. Estimated blood loss: None. Estimated Blood Loss: Estimated blood loss: none. Procedure: Pre-Anesthesia Assessment: - Prior Anticoagulants: The patient has taken no previous anticoagulant or antiplatelet agents. - ASA Grade Assessment: IV - A patient with severe systemic disease that is a constant threat to life. After obtaining informed consent, the endoscope was passed under direct vision. Throughout the procedure, the patient's blood pressure, pulse, and oxygen saturations were monitored continuously. The Endoscope was introduced through the mouth, and advanced to the second part of duodenum. The upper GI endoscopy was accomplished without difficulty. The patient tolerated the procedure well. Findings: No endoscopic abnormality was evident in the esophagus to explain the patient's complaint of dysphagia. It was decided, however, to proceed with dilation of the entire esophagus. A guidewire was placed and the scope was withdrawn. Dilation was performed with a Savary dilator with no resistance at 42 Fr. The dilation site was examined following endoscope reinsertion and showed no change. Estimated blood loss: none. Diffuse moderate inflammation characterized by erosions and erythema was found in the stomach. Biopsies were taken with a cold forceps for Helicobacter pylori testing. Estimated blood loss: none. The duodenal bulb and second portion of the duodenum were normal. Bilious fluid was found in the gastric fundus. Impression: - No endoscopic esophageal abnormality to explain patient's dysphagia. Esophagus dilated. Dilated. - Gastritis. Biopsied. - Normal duodenal bulb and second portion of the duodenum. - Bilious gastric fluid. Recommendation: - [facility]. - NPO today. obtain speech evaluation -outpatient esophageal manometry to further evaluate - Await pathology results. Pedro López MD 12/31/2021 3:19:37 PM This report has been signed electronically. Note Initiated On: 12/31/2021 2:16 PM Number of Addenda: 0 I attest to the content of the Intraoperative Record and orders documented therein, exceptions below {[id number]}
--- NOTE | 2021-12-31 15:21 | Procedure Note ---
Procedure Note Date of Service December 31, 2021 Note brief procedure note/post op note EGD findings: normal esophagus, dilated with savary 42 Fr. erosions, bx'd. recs: NPO speech eval esophageal manometry as outpt. supportive care f/u path Pedro López MD Gastroenterology Coding
[2021-12-31] MEDS ORDERED: ONDANSETRON INJ 2 MG/ML 2 ML VIAL ONE (15:35)
[2021-12-31] MEDS ORDERED: DEXAMETHASONE SOD INJ 4 MG/ML VIAL ONE (15:35)
--- NOTE | 2021-12-31 16:07 | Anesthesiology Progress Note ---
Date of Service December 31, 2021 Anesthesia Post Procedure Vital Signs Vital Signs: Temp Pulse Pulse Resp BP Pulse Ox 12/31/21 15:50 82 22 128/75 97 12/31/21 15:40 81 18 182/80 H 98 12/31/21 15:30 87 23 187/114 H 100 12/31/21 15:23 97.3 F L 90 8 L 180/77 H 97 12/31/21 14:35 98.6 F 71 19 204/107 H 96 12/31/21 11:18 97.3 F L 50 L 18 155/66 H 96 12/31/21 07:26 79 12/31/21 07:13 97.5 F L 64 18 144/78 H 92 12/30/21 23:25 75 12/30/21 23:08 97.7 F 79 20 124/66 92 12/30/21 19:52 97.5 F L 94 H 18 175/74 H 95 12/30/21 17:58 97.5 F L 84 20 163/76 H 95 12/30/21 17:31 77 18 134/58 L 93 12/30/21 16:55 76 18 142/82 H 93 12/30/21 16:43 92 Transfer of Care Handoff Completed per policy Notes Mental Status: alert / awake / arousable and participated in evaluation Patient Amnestic to Procedure: Yes Nausea / Vomiting: adequately controlled Pain: adequately controlled Airway Patency, RR, SpO2: stable & adequate BP & HR: stable & adequate Hydration State: stable & adequate Anesthetic Complications: no major complications apparent and Pt Satisfied with anesthetic care
[2021-12-31] MEDS: hydrALAZINE HCL 20 MG/ML VIAL IV PRN (17:07)
--- NOTE | 2021-12-31 17:54 | XCELERA ---
[id number]
--- NOTE | 2021-12-31 22:39 | Electrocardiogram Report ---
Test Reason : Blood Pressure : / mmHG Vent. Rate : 089 BPM Atrial Rate : 089 BPM P-R Int : 160 ms QRS Dur : 136 ms QT Int : 402 ms P-R-T Axes : 000 -33 094 degrees QTc Int : 489 ms Sinus rhythm with frequent Premature ventricular complexes in a pattern of bigeminy Left axis deviation Left bundle branch block Abnormal ECG No previous ECGs available Confirmed by Lionel Ovalles ([id number]) on 12/31/2021 10:38:30 PM Referred By: REFERRED SELF Confirmed By:Lionel Ovalles
[2022-01-01] MEDS: HEPARIN SOD 5,000 UNIT/0.5 ML VIAL SQ SCH ×3 (05:07→19:52)
[2022-01-01] MEDS: AMPICILLIN/SULBACTAM SOD 3,000 MG in 0.9 % SODIUM CHLORIDE 100 ML IV SCH ×4 (05:07→23:20)
[2022-01-01 07:52] LABS: Hematocrit (blood only) 38.3 % (42-52); Hemoglobin 12.7 g/dL (14.0-18.0); Immature Granulocytes # (auto) 0.04 K/uL (0.00-0.02); Immature Granulocytes % (auto) 0.4 %; Lymphocytes # (auto) 0.71 K/uL (1.2-3.4); Lymphocytes % (auto) 6.3 %; Mean Corpuscular Hemoglobin 31.6 pg (25-34); Mean Corpuscular Hgb Conc 33.2 g/dL (32-36); Mean Corpuscular Volume 95.3 fL (80-100); Mean Platelet Volume 12.5 fL (7.4-10.4); Monocytes # (auto) 0.38 K/uL (0.11-0.59); Monocytes % (auto) 3.3 %; Neutrophils # (auto) 10.23 K/uL (1.4-6.5); Platelet Count 192 K/uL (130-400); Red Blood Count 4.02 M/uL (4.7-6.1); White Blood Count 11.36 K/uL (4.8-10.8)
[2022-01-01 08:12] LABS: Albumin Globulin Ratio 1.2 (0.9-2); Albumin Level 3.7 gm/dl (3.4-5.0); BUN Creatinine Ratio 27.9 (10-20); Bilirubin,Total 0.7 mg/dl (0.2-1.0); Calcium 9.2 mg/dl (8.5-10.1); Creatinine Clr Calc Pharmacy 53.1 ml/min; Est GFR (African American) 65.4 ml/min; Est GFR (Non-African American) 56.4 ml/min; Globulin 3.2 gm/dl (2.5-4.0); Potassium 4.7 mmol/L (3.5-5.1); Total Protein 6.9 gm/dl (6.0-8.3)
--- NOTE | 2022-01-01 11:51 | Hospitalist Progress Note ---
Date of Service January 01, 2022 Assessment & Plan (1) Dysphagia: Plan: Wilton is a 76-year-old male with a past medical history of carotid endarterectomy and stenting, hx of throat cancer with surgery/chemo/radiation in 2000 in [place], hypertension, and unclear cardiac history who receives medical care in [place] who is visiting family in [place] and who presents with dysphagia the inability to swallow liquids/solids/pills in the last 4 days. 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 No findings are seen to suggest recurrent or metastatic disease. The trachea and esophagus are patent. 2. Prominence of the esophagus is nonspecific, clinical correlation is recommended to exclude achalasia or dysmotility. CT-Ch: Mildly distended fluid/debris filled esophagus. Intraluminal radiodense structure within the mid esophageal lumen may represent a pill fragment. Cholecystectomy. Calcified granulomata of the liver. Gynecomastia. Indeterminate subcutaneous 1.9 cm soft tissue attenuating lesion of the left posterior shoulder. Degenerative changes of the shoulders and spine. Extensive mid to lower lung zone reticular nodular opacities are suggestive of an infectious or inflammatory pneumonitis. Follow-up imaging following treatment course is recommended. No pleural effusion or lymphadenopathy. Mild tracheobronchial secretions. N.p.o. -Discomfort improved morning of 12/31 Following EGD patient clearing saliva better, but with concerns for continued aspiration and speech evaluation. Patient pending video swallow. No structural impediment was observed on EGD, may have functional inability to swallow with history of radiation therapy in the past and neck fibrosis. May require evaluation for PEG if no return of swallow ability. Aspiration pneumonia With leukocytosis to 24, downtrending to 11 - CT findings as above In the setting of dysphagia/regurgitation - Continue Unasyn No hypoxia Chest discomfort Epigastric discomfort has resolved this morning Per review of [place] provider's notes patient with a history of multivessel CAD, was not recommended for cardiac stenting per patient although cardiology note is not available for full review Is on Plavix therapy narrowed from dual antiplatelet therapy related to carotid stents ; No history of cardiac stents Troponin slightly elevated on admission, down trended consistent with volume depletion EKG shows sinus rhythm with ventricular bigeminy and left bundle branch block. No concordant ST elevations or excessively dis-concordant ST elevations appreciated EKG from PCPs office obtained, also shows bigeminy/LBBB similar to current Carvedilol 3.125 mg held while NPO. MTP Every 6 hours as needed IV order placed for beta-magi withdrawal while intolerant of p.o. ASA 81 mg and isosorbide were stopped as outpatient Continue Plavix when able to tolerate p.o. 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 We will convert to Synthroid IV at 30% dose reduction while n.p.o. HTN - MTP as above, meds held while NPO as above. 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 He reports he does feel better after his EGD with dilation, and is clearing the saliva little bit better but has not yet met with speech therapy. He denies any chest pain, chest pressure, difficulty breathing, shortness of breath, lightheadedness, dizziness, syncope, presyncope. He reports a previous discomfort he had in his chest has completely resolved. He did not have any burning or increased pain following EGD. Patient is hopeful that he will be able to eat, with expresses an understanding that should he not be able to swallow safely then an alternative means of nutrition such as a PEG might be required. Patient expresses an understanding of this, but is hopeful that his speech evaluation will go well. Review of Systems Review of Systems: All systems reviewed & are unremarkable except as noted in Subjective Physical Exam Physical Exam: General: A&Ox3. NAD. Cooperative. HEENT: Atraumatic, normocephalic. Visiona/hearing grossly intact, Crow. PERLAA. Pulm: Crackles in the bases which clears with deep breaths, moderate air movement, CTAB A&P. -wheezes, -rales, -rhonchi. Symmetrical chest rise. No increase in work of breathing. No respiratory distress. Cardiac: RRR, +sm. Radial pulses intact and symmetrical. Abdominal: Nontender, nondistended, soft. BS present. Ext: Warm, Dry. Trace pitting edema of ankles bilaterally chronic per pt. Post operative knee incisions well healed. Results & Data Results & Data ([facility]) Vital Signs (Past 12 Hours) Vital Signs Temp Pulse Resp BP Pulse Ox 01/01/22 11:41 36.4 C L 73 18 186/88 H 97 01/01/22 07:50 36.6 C 90 20 176/85 H 94 01/01/22 03:50 36.5 C 76 16 155/82 H 95 PG Care Time/CCT Total # of Minutes Spent Total Time Spent with Patient: Total time spent is greater than 50% in coordination of care (as documented) at patient's floor/unit and/or counseling patient: Coding Level of Care Code 48055 Subseq Hosp Care Lvl 3 Diagnoses Dysphagia R13.10 Dysphagia type: unspecified Elevated troponin R77.8 Bigeminy I49.8 H/O carotid endarterectomy Z98.890 Hypertension I10 History of throat cancer Z85.819 Aspiration pneumonia J69.0 Aspiration pneumonia type: due to vomit Laterality: bilateral Lung location: lower lobe of lung REUBEN (acute kidney injury) N17.9 (1) Dysphagia Dysphagia type: unspecified Qualified Code(s): R13.10 - Dysphagia, unspecified (2) Aspiration pneumonia Aspiration pneumonia type: due to vomit Laterality: bilateral Lung location: lower lobe of lung Qualified Code(s): J69.0 - Pneumonitis due to inhalation of food and vomit
[2022-01-01] MEDS: D5W AND NSS 1,000 ML IV SCH (12:28)
--- NOTE | 2022-01-01 13:54 | Fluoroscopy Report ---
FL video swallow CLINICAL HISTORY: assess for aspiration COMPARISON STUDY: No previous studies for comparison. FLUOROSCOPY TIME: 2.6 minutes. NUMBER OF IMAGES: 10 cine esophageal swallowing sequences FINDINGS: The patient was given barium of varying consistencies and observed under fluoroscopy with c oncurrent tape recording. Examination is performed in conjunction with a member of the speech patholo gy department. The patient was given the following consistencies of barium: Thin liquid, mildly thick liquid, modera tely thick liquid, pudding, and cracker with paste. There was penetration and aspiration with thin barium liquid. There was also aspiration with mildly t hick liquid and silent aspiration with pudding. IMPRESSION: Positive for penetration and aspiration Please see report from speech pathology regarding additional findings recommendations. ACT 112: Negative or not required by law. Electronically signed by: Brian Ballesteros M.D. 01/01/2022 1:53 PM
[2022-01-01] MEDS ORDERED: DEXTROSE 10% 1,000 ML IV PRN (15:58)
[2022-01-01] MEDS ORDERED: TPN/PPN CONSULT PHARMACY PRN (16:00)
[2022-01-01] MEDS: METOPROLOL TARTRATE 1 MG/ML VIAL IV SCH ×2 (16:08→19:52)
[2022-01-02] MEDS: D5W AND NSS 1,000 ML IV SCH (01:19)
[2022-01-02] MEDS: METOPROLOL TARTRATE 1 MG/ML VIAL IV SCH ×4 (03:22→21:56)
[2022-01-02] MEDS: AMPICILLIN/SULBACTAM SOD 3,000 MG in 0.9 % SODIUM CHLORIDE 100 ML IV SCH ×4 (05:32→22:04)
[2022-01-02] MEDS: HEPARIN SOD 5,000 UNIT/0.5 ML VIAL SQ SCH ×3 (05:32→21:54)
[2022-01-02 07:21] LABS: Basophils # (auto) 0.01 K/uL (0-0.2); Basophils % (auto) 0.1 %; Eosinophils # (auto) 0.01 K/uL (0-0.5); Eosinophils % (auto) 0.1 %; Hematocrit (blood only) 36.2 % (42-52); Hemoglobin 12.1 g/dL (14.0-18.0); Immature Granulocytes # (auto) 0.05 K/uL (0.00-0.02); Immature Granulocytes % (auto) 0.4 %; Lymphocytes % (auto) 6.3 %; Mean Corpuscular Hemoglobin 31.8 pg (25-34); Mean Corpuscular Hgb Conc 33.4 g/dL (32-36); Mean Platelet Volume 11.6 fL (7.4-10.4); Monocytes # (auto) 0.94 K/uL (0.11-0.59); Monocytes % (auto) 7.4 %; Neutrophils # (auto) 10.95 K/uL (1.4-6.5); Neutrophils % (auto) 85.7 %; Platelet Count 200 K/uL (130-400); RDW Coefficient of Variation 14.2 % (11.5-14.5); Red Blood Count 3.81 M/uL (4.7-6.1); White Blood Count 12.76 K/uL (4.8-10.8)
[2022-01-02 07:48] LABS: Est GFR (African American) 68.8 ml/min; Potassium 4.5 mmol/L (3.5-5.1)
[2022-01-02 07:49] LABS: BUN Creatinine Ratio 27.4 (10-20); Creatinine Clr Calc Pharmacy 55.4 ml/min; Est GFR (Non-African American) 59.4 ml/min; Phosphorus 1.9 mg/dl (2.5-4.9)
[2022-01-02] MEDS: hydrALAZINE HCL 20 MG/ML VIAL IV PRN (08:50)
[2022-01-02] MEDS: LEVOTHYROXINE SODIUM 75 MCG in SYRINGE 0 ML IV SCH (08:51)
[2022-01-02] MEDS ORDERED: POTASSIUM PHOSPHATE 15 MMOL in DEXTROSE 5% 250 ML IV ONE (11:00)
--- NOTE | 2022-01-02 12:03 | Hospitalist Progress Note ---
Date of Service January 02, 2022 Assessment & Plan (1) Dysphagia: Plan: Wilton is a 76-year-old male with a past medical history of carotid endarterectomy and stenting, hx of throat cancer with surgery/chemo/radiation in 2000 in [place], hypertension, and unclear cardiac history who receives medical care in [place] who is visiting family in [place] and who presents with dysphagia the inability to swallow liquids/solids/pills in the last 4 days. Dysphagia Complete inability to swallow solids, liquids, or pills for 4 days HAND KNITTER Patient does endorse some gradually worsening tolerance to swallowing, but was able to eat half a cheeseburger without difficulty approximately 1 week ago -No evidence of recurrence of malignancy on imaging Soft Tissue neck CT: 1. No findings are seen to suggest recurrent or metastatic disease. The trachea and esophagus are patent. 2. Prominence of the esophagus is nonspecific, clinical correlation is recommended to exclude achalasia or dysmotility. CT-Ch: Mildly distended fluid/debris filled esophagus. Intraluminal radiodense structure within the mid esophageal lumen may represent a pill fragment. Cholecystectomy. Calcified granulomata of the liver. Gynecomastia. Indeterminate subcutaneous 1.9 cm soft tissue attenuating lesion of the left posterior shoulder. Degenerative changes of the shoulders and spine. Extensive mid to lower lung zone reticular nodular opacities are suggestive of an infectious or inflammatory pneumonitis. Follow-up imaging following treatment course is recommended. No pleural effusion or lymphadenopathy. Mild tracheobronchial secretions. N.p.o. -Discomfort improved morning of 12/31 Following EGD patient clearing saliva better, but with concerns for continued aspiration and speech evaluation.: Video swallow patient found to have no functional swallow. Pending PEG placement. Discussed with GI and surgery. Recommended to attempt minimally invasive PEG placement through GI rather than surgical gastrostomy, is not able to be performed/assessed over the weekend and patient will have GI reevaluation on Tuesday. PPN initiated for nutrition given patient 5 days with no nutrition, and several days of poor to minimal nutrition - Phosphate 1.9, additional repletion ordered with PPN pending Aspiration pneumonia With leukocytosis to 24, down trended but not normalized - CT findings as above In the setting of dysphagia/regurgitation - Continue Unasyn until 01/04 No hypoxia Chest discomfort Epigastric discomfort has resolved this morning Per review of [place] provider's notes patient with a history of multivessel CAD, was not recommended for cardiac stenting per patient although cardiology note is not available for full review Is on Plavix therapy narrowed from dual antiplatelet therapy related to carotid stents ; No history of cardiac stents Troponin slightly elevated on admission, down trended consistent with volume depletion EKG shows sinus rhythm with ventricular bigeminy and left bundle branch block. No concordant ST elevations or excessively dis-concordant ST elevations appreciated EKG from PCPs office obtained, also shows bigeminy/LBBB similar to current Carvedilol 3.125 mg held while NPO. MTP Every 6 hours as needed IV order placed for beta-magi withdrawal while intolerant of p.o. ASA 81 mg and isosorbide were stopped as outpatient Continue Plavix when able to tolerate p.o. Enalapril was stopped as outpatient Continue spironolactone, zetia, atorvastatin when able Hypothyroidism Patient takes Synthroid 100 mcg HAND KNITTER Has not been able to take thyroid medications for 3-4 days due to intolerance to p.o. We will convert to Synthroid IV at 30% dose reduction while n.p.o. HTN - MTP as above, meds held while NPO as above. 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 Dose increased from 2.5-->5mg PRN - IV MTP limited in am due to bradycardia Prerenal Azotemia - Admit Cr 1.7 rapidly decreased to normal (1.31) with IVFM - Cr remains normal - BMP daily DVT PPx: Heparin Diet: NPO, pending PEG Dispo: Med Tele Code Status: DNR/DNI (2) Elevated troponin: (3) Bigeminy: (4) H/O carotid endarterectomy: (5) Hypertension: (6) History of throat cancer: (7) Aspiration pneumonia: (8) REUBEN (acute kidney injury): Admission and Anticipated Discharge Date Admission Date: December 30, 2021 Subjective Patient seen at bedside this morning. No clinical change. No chest pain, chest pressure, shortness of breath, difficulty breathing, lightheadedness, dizziness, syncope, presyncope. No change is swallowing some saliva well but otherwise has not had any change or improvement in swallowing. Is awaiting PEG evaluation by GI on Tuesday. is on phone with patient while at bedside, no additional questions today Review of Systems Review of Systems: All systems reviewed & are unremarkable except as noted in Subjective Physical Exam Physical Exam: General: A&Ox3. NAD. Cooperative. HEENT: Atraumatic, normocephalic. Visiona/hearing grossly intact, [place]. PERLAA. Left neck asymmetry with thickening, well-healed. Pulm: CTAB, moderate air movement, CTAB A&P. -wheezes, -rales, -rhonchi. Symmetrical chest rise. No increase in work of breathing. No respiratory distress. Cardiac: RRR, +sm. Radial pulses intact and symmetrical. Abdominal: Nontender, nondistended, soft. BS present. Ext: Warm, Dry. Trace pitting edema of ankles bilaterally chronic per pt. Post operative knee incisions well healed. Results & Data Results & Data ([facility]) Vital Signs (Past 12 Hours) Vital Signs Temp Pulse Pulse Resp BP Pulse Ox 01/02/22 11:36 36.6 C 53 L 18 184/88 H 98 01/02/22 10:35 58 L 01/02/22 07:53 191/83 H 01/02/22 07:36 36.4 C L 55 L 19 98 01/02/22 07:00 54 L 01/02/22 04:09 36.3 C L 51 L 18 183/92 H 94 PG Care Time/CCT Total # of Minutes Spent Total Time Spent with Patient: Total time spent is greater than 50% in coordination of care (as documented) at patient's floor/unit and/or counseling patient: Coding Level of Care Code 97663 Subseq Hosp Care Lvl 2 Diagnoses Dysphagia R13.10 Dysphagia type: unspecified Elevated troponin R77.8 Bigeminy I49.8 H/O carotid endarterectomy Z98.890 Hypertension I10 History of throat cancer Z85.819 Aspiration pneumonia J69.0 Aspiration pneumonia type: due to vomit Laterality: bilateral Lung location: lower lobe of lung REUBEN (acute kidney injury) N17.9 (1) Dysphagia Dysphagia type: unspecified Qualified Code(s): R13.10 - Dysphagia, unspecified (2) Aspiration pneumonia Aspiration pneumonia type: due to vomit Laterality: bilateral Lung location: lower lobe of lung Qualified Code(s): J69.0 - Pneumonitis due to inhalation of food and vomit
[2022-01-02] MEDS ORDERED: hydrALAZINE HCL 20 MG/ML VIAL IV STA (12:10)
[2022-01-02] MEDS ORDERED: hydrALAZINE HCL 20 MG/ML VIAL IV PRN (12:10)
[2022-01-02] MEDS ORDERED: CLINOLIPID 20% IV FAT EMULSION 250 ML IV SCH (16:00)
[2022-01-02] MEDS ORDERED: PERIPHERAL TPN IV SCH (16:00)
[2022-01-02] MEDS ORDERED: D5W IV SCH (16:00)
[2022-01-02] MEDS ORDERED: AMINO ACIDS 4.25% IV SCH (16:00)
[2022-01-02] MEDS ORDERED: STOP CLINOLIPID ONE (22:00)
[2022-01-03] MEDS: METOPROLOL TARTRATE 1 MG/ML VIAL IV SCH ×5 (03:20→21:08)
[2022-01-03] MEDS: HEPARIN SOD 5,000 UNIT/0.5 ML VIAL SQ SCH ×2 (05:13→15:01)
[2022-01-03] MEDS: AMPICILLIN/SULBACTAM SOD 3,000 MG in 0.9 % SODIUM CHLORIDE 100 ML IV SCH ×3 (05:13→17:39)
[2022-01-03 08:58] LABS: BUN Creatinine Ratio 22.8 (10-20); Calcium 8.6 mg/dl (8.5-10.1); Creatinine Clr Calc Pharmacy 64.2 ml/min; Est GFR (African American) 82.2 ml/min; Est GFR (Non-African American) 70.9 ml/min; Magnesium 1.7 mg/dl (1.7-2.4); Phosphorus 2.5 mg/dl (2.5-4.9); Potassium 3.7 mmol/L (3.5-5.1)
--- NOTE | 2022-01-03 10:55 | Pharmacy Report ---
Pharmacy PN Initial Consult - Date of Service January 03, 2022 - Scope Pharmacy has been consulted to manage parenteral nutrition orders and order appropriate labs. As part of the Nutrition Support Team guidelines, pharmacy will work in conjunction with dietary when determining the patients caloric needs. - Subjective The patient is a 76 year old M admitted on 12/30/21 13:51 for DYSPHAGIA, INABILITY TO SWALLOW SOLIDS/LIQUIDS. Patient is to receive parenteral nutrition for prolonged NPO due to dysphagia, awaiting PEG tube placement. - Objective Height: 5 ft 11 in Weight: 80.9 kg Diet: NPO Intake & Output (Last 24Hrs): Intake & Output 01/01/22 01/02/22 01/03/22 01/04/22 06:59 06:59 06:59 06:59 Intake Total 3372 / 3372 1331.5 / 1331.5 1936 Output Total 0 / 0 Balance 3372 / 3372 1331.5 / 1331.5 1936 Weight 81.1 kg 80.9 kg 80.9 kg Laboratory Data (Last 24 Hrs):: 01/03/22 07:10 Sodium 137 Potassium 3.7 Chloride 102 Carbon Dioxide 29 BUN 23 Creatinine 1.01 Glucose 85 Calcium 8.6 Phosphorus 2.5 Magnesium 1.7 Triglycerides 101 Nutrition Assessment:: Please refer to the Notes section of the EMR for the most recent geopolitics teacher note. - Assessment Mr. Lancaster is a 76 yo male initiated on short term PPN for prolonged NPO (5 days with no nutrition and several days of poor to minimal nutrition prior to that) * Patient found to have no functional swallow on video swallow * Planning for PEG tube placement. GI will reevaluate on 01/04/22. * Will utilize max volume for PPN (2 L) which provides 1152.8 kcal per day * Phosphorus was replaced on 01/02 prior to starting PPN. Electrolytes are within normal limits, however, potassium, magnesium and sodium are trending downward. Will increase amounts of these electrolytes in today's bag. - Plan For day 2 of PN administration, the following will be ordered: Macronutrients Amino acids 82 grams/day Dextrose 96 grams/day Lipids 50 grams/day Micronutrients Combined electrolytes 20 mL - contains 35 mEq Na, 20 meq K, 4.5 mEq Ca, 5 mEq Mg, 35 mEq Cl, 29.5 mEq acetate per 20 mL Sodium phosphate 30 MMol Sodium acetate 30 mEq Potassium acetate 40 mEq Magnesium sulfate 4.06 mEq Calcium gluconate 4.65 mEq Multivitamins 10 mL Trace Elements 10 mL Additional additives: folic acid 1 mg, thiamine 100 mg Total volume 2008 mL to be infused over 24 hrs will provide 1152.8 kcal/day Final osmolarity 817.3 mOsm/L (maximum for PPN is 900 mOsm/L) Labs to be ordered per PN order protocol Pharmacy will follow and adjust parenteral nutrition orders on a daily basis. Thank you.
--- NOTE | 2022-01-03 13:56 | Hospitalist Progress Note ---
Date of Service January 03, 2022 Assessment & Plan (1) Dysphagia: Plan: Wilton is a 76-year-old male with a past medical history of carotid endarterectomy and stenting, hx of throat cancer with surgery/chemo/radiation in 2000 in [place], hypertension, and unclear cardiac history who receives medical care in [place] who is visiting family in [place] and who presents with dysphagia the inability to swallow liquids/solids/pills in the last 4 days. 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 No findings are seen to suggest recurrent or metastatic disease. The trachea and esophagus are patent. 2. Prominence of the esophagus is nonspecific, clinical correlation is recommended to exclude achalasia or dysmotility. CT-Ch: Mildly distended fluid/debris filled esophagus. Intraluminal radiodense structure within the mid esophageal lumen may represent a pill fragment. Cholecystectomy. Calcified granulomata of the liver. Gynecomastia. Indeterminate subcutaneous 1.9 cm soft tissue attenuating lesion of the left posterior shoulder. Degenerative changes of the shoulders and spine. Extensive mid to lower lung zone reticular nodular opacities are suggestive of an infectious or inflammatory pneumonitis. Follow-up imaging following treatment course is recommended. No pleural effusion or lymphadenopathy. Mild tracheobronchial secretions. N.p.o. -Discomfort improved morning of 12/31 Following EGD patient clearing saliva better, but with concerns for continued aspiration and speech evaluation.: Video swallow patient found to have no functional swallow. Pending PEG placement. Discussed with GI and surgery. Recommended to attempt minimally invasive PEG placement through GI rather than surgical gastrostomy, is not able to be performed/assessed over the weekend and patient will have GI reevaluation on Tuesday. PPN initiated for nutrition given patient 5 days with no nutrition, and several days of poor to minimal nutrition - Phosphate 1.9 --> 2.5 Aspiration pneumonia With leukocytosis to 24, down trended - CT findings as above In the setting of dysphagia/regurgitation - Continue Unasyn until 01/04 No hypoxia Chest discomfort Epigastric discomfort has resolved following an episode of emesis/regurgitation early next Per review of [place] provider's notes patient with a history of multivessel CAD , was not recommended for cardiac stenting per patient although cardiology note is not available for full review Is on Plavix therapy narrowed from dual antiplatelet therapy related to carotid stents ; No history of cardiac stents Troponin slightly elevated on admission, down trended consistent with volume depletion EKG shows sinus rhythm with ventricular bigeminy and left bundle branch block. No concordant ST elevations or excessively dis-concordant ST elevations appreciated EKG from PCPs office obtained, also shows bigeminy/LBBB similar to current Carvedilol 3.125 mg held while NPO. MTP Every 6 hours as needed IV order placed for beta-magi withdrawal while intolerant of p.o. ASA 81 mg and isosorbide were stopped as outpatient Continue Plavix when able to tolerate p.o. 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 We will convert to Synthroid IV at 30% dose reduction while n.p.o. HTN - MTP as above, meds held while NPO as above. Hydralazine tong carrier 2nd line to MTP. Dose increased from 2.5-->5mg PRN. Reasonable blood pressure control 01/03 -Hold MTP for bradycardia Prerenal Azotemia - Admit Cr 1.7 rapidly decreased to normal (1.31) with IVFM - Cr remains normal - BMP daily DVT PPx: Heparin. Hold morning of 01/04 in case PEG able to be performed Diet: NPO, pending PEG Dispo: Med Tele Code Status: DNR/DNI (2) Elevated troponin: (3) Bigeminy: (4) H/O carotid endarterectomy: (5) Hypertension: (6) History of throat cancer: (7) Aspiration pneumonia: (8) REUBEN (acute kidney injury): Admission and Anticipated Discharge Date Admission Date: December 30, 2021 Subjective No change overnight. Remains without chest pain, chest pressure, difficulty breathing. No change in swallowing. Tolerating saliva okay. Eager to have procedures done and to get out of the hospital, we are awaiting PEG eval with GI on Tuesday. No questions or concerns, seen at bedside in the morning when he sleeping comfortably and again later morning at the bedside with his . Tolerating PPN well Review of Systems Review of Systems: All systems reviewed & are unremarkable except as noted in Subjective Physical Exam Physical Exam: General: A&Ox3. NAD. Cooperative. HEENT: Atraumatic, normocephalic. Visiona/hearing grossly intact, [place]. PERLAA. Left neck asymmetry with thickening, well-healed. Pulm: CTAB A&P. -wheezes, -rales, -rhonchi. Symmetrical chest rise. No increase in work of breathing. No respiratory distress. Cardiac: RRR, +sm. Radial pulses intact and symmetrical. Abdominal: Nontender, nondistended, soft. BS present. Ext: Warm, Dry. Trace pitting edema of ankles bilaterally chronic per pt. Post operative knee incisions well healed. Results & Data Results & Data ([facility]) Vital Signs (Past 12 Hours) Vital Signs Temp Pulse Pulse Resp BP Pulse Ox 01/03/22 12:53 36.6 C 61 147/84 H 93 01/03/22 11:24 59 L 01/03/22 07:16 36.8 C 62 16 172/91 H 96 01/03/22 07:00 59 L 01/03/22 03:16 36.2 C L 66 16 174/89 H 97 PG Care Time/CCT Total # of Minutes Spent Total Time Spent with Patient: Total time spent is greater than 50% in coordination of care (as documented) at patient's floor/unit and/or counseling patient: Coding Level of Care Code 62347 Subseq Hosp Care Lvl 1 Diagnoses Dysphagia R13.10 Dysphagia type: unspecified Elevated troponin R77.8 Bigeminy I49.8 H/O carotid endarterectomy Z98.890 Hypertension I10 History of throat cancer Z85.819 Aspiration pneumonia J69.0 Aspiration pneumonia type: due to vomit Laterality: bilateral Lung location: lower lobe of lung REUBEN (acute kidney injury) N17.9 (1) Dysphagia Dysphagia type: unspecified Qualified Code(s): R13.10 - Dysphagia, unspecified (2) Aspiration pneumonia Aspiration pneumonia type: due to vomit Laterality: bilateral Lung location: lower lobe of lung Qualified Code(s): J69.0 - Pneumonitis due to inhalation of food and vomit
[2022-01-03] MEDS ORDERED: D5W IV SCH (16:00)
[2022-01-03] MEDS ORDERED: CLINOLIPID 20% IV FAT EMULSION 250 ML IV SCH (16:00)
[2022-01-03] MEDS ORDERED: AMINO ACIDS 4.25% IV SCH (16:00)
[2022-01-03] MEDS ORDERED: PERIPHERAL TPN IV SCH (16:00)
[2022-01-03] MEDS: STOP CLINOLIPID SCH (21:08)
[2022-01-04] MEDS: AMPICILLIN/SULBACTAM SOD 3,000 MG in 0.9 % SODIUM CHLORIDE 100 ML IV SCH ×4 (00:02→17:15)
[2022-01-04] MEDS: METOPROLOL TARTRATE 1 MG/ML VIAL IV SCH ×4 (05:00→19:42)
[2022-01-04 07:30] LABS: Anion Gap 5 (3-11); BUN Creatinine Ratio 23.1 (10-20); Blood Urea Nitrogen 24 mg/dl (6-23); Calcium 8.9 mg/dl (8.5-10.1); Carbon Dioxide 31 mmol/L (21-32); Chloride 99 mmol/L (98-107); Creatinine Clr Calc Pharmacy 62.3 ml/min; Est GFR (African American) 79.3 ml/min; Est GFR (Non-African American) 68.4 ml/min; Glucose 82 mg/dl (70-99(Fasting)); Magnesium 1.9 mg/dl (1.7-2.4); Sodium 135 mmol/L (136-145)
--- NOTE | 2022-01-04 10:31 | Gastroenterology Progress Note ---
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 He has failed HEEL SEAT POUNDER eval and is unable to be rehabilitated to safe swallow. We discussed the risks/benefits of PEG tubes and artificial feeding including but not limited to infection, perforation, and bleeding. We discussed that this does not eliminate his risk for aspiration as he may still aspirate his saliva and tube feeds. He is understanding of the risks and wishes to proceed. We did discuss that we will attempt to endoscopically place the gastric tube, however he has a history of a PEG in the past along with multiple abdominal surgeries so it is unclear if adhesions/scar tissue will interfere with endoscopic placement. Keep NPO and plan for EGD with PEG placement on 01/05/22. Will defer pre-op dose of Ancef as he is on broad spectrum antibiotic therapy at present. Admission and Anticipated Discharge Date Admission Date: December 30, 2021 Supervising Physician Co-Signing Physician Notes Agree with KWESI Carlson as above Abd: Soft, NT, ND, +BS, Midline incisional scar Continue current therapy and supportive care Attempt PEG tube placement tomorrow, though due to prior abdominal surgeries, it may not be amenable to endoscopic placement. Subjective Patient is a 76 yo male with dysphagia. He underwent an EGD that was unremarkable for structural. 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 He is interested in pursuing alternative nutrition. He denies new issues. He notes he had a PEG tube 20 years ago. He has a midline scar on his abdomen due to history of resection from colorectal cancer. He notes a cholecystectomy in the past as well. Blood cultures negative. He is improving from a medical standpoint. Review of Systems Gastrointestinal: + dysphagia Physical Exam Gastrointestinal (Abdomen): Abdominal scarring from previous surgeries Psychiatric: Orientation: alert and oriented x 3 Results & Data Results & Data ([facility]) Vital Signs (Past 12 Hours) Vital Signs Temp Pulse Pulse Pulse Resp BP BP 01/04/22 10:26 65 01/04/22 09:00 65 01/04/22 07:07 36.5 C 70 18 178/96 H 01/04/22 05:00 63 144/81 H 01/04/22 04:19 36.5 C 61 17 152/78 H 01/04/22 00:08 65 01/03/22 23:00 36.8 C 55 L 18 118/67 Pulse Ox 01/04/22 10:26 01/04/22 09:00 01/04/22 07:07 93 01/04/22 05:00 01/04/22 04:19 96 01/04/22 00:08 01/03/22 23:00 95 PG Care Time/CCT Total # of Minutes Spent Total Time Spent with Patient: Total time spent is greater than 50% in coordination of care (as documented) at patient's floor/unit and/or counseling patient: Coding Level of Care Code 35376 Subseq Hosp Care Lvl 3 Diagnoses Dysphagia R13.10 Dysphagia type: unspecified (1) Dysphagia Dysphagia type: unspecified Qualified Code(s): R13.10 - Dysphagia, unspecified
[2022-01-04] MEDS ORDERED: PERIPHERAL TPN IV SCH (16:00)
[2022-01-04] MEDS ORDERED: CLINOLIPID 20% IV FAT EMULSION 250 ML IV SCH (16:00)
[2022-01-04] MEDS ORDERED: AMINO ACIDS 4.25% IV SCH (16:00)
[2022-01-04] MEDS ORDERED: D5W IV SCH (16:00)
--- NOTE | 2022-01-04 16:12 | Hospitalist Progress Note ---
Date of Service January 04, 2022 Assessment & Plan (1) Dysphagia: Plan: Wilton is a 76-year-old male with a past medical history of carotid endarterectomy and stenting, hx of throat cancer with surgery/chemo/radiation in 2000 in [place], hypertension, and unclear cardiac history who receives medical care in [place] who is visiting family in [place] and who presents with dysphagia the inability to swallow liquids/solids/pills in the last 4 days. 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 No findings are seen to suggest recurrent or metastatic disease. The trachea and esophagus are patent. 2. Prominence of the esophagus is nonspecific, clinical correlation is recommended to exclude achalasia or dysmotility. CT-Ch: Mildly distended fluid/debris filled esophagus. Intraluminal radiodense structure within the mid esophageal lumen may represent a pill fragment. Cholecystectomy. Calcified granulomata of the liver. Gynecomastia. Indeterminate subcutaneous 1.9 cm soft tissue attenuating lesion of the left posterior shoulder. Degenerative changes of the shoulders and spine. Extensive mid to lower lung zone reticular nodular opacities are suggestive of an infectious or inflammatory pneumonitis. Follow-up imaging following treatment course is recommended. No pleural effusion or lymphadenopathy. Mild tracheobronchial secretions. N.p.o. -Discomfort improved morning of 12/31 Following EGD patient clearing saliva better, but with concerns for continued aspiration and speech evaluation.: Video swallow patient found to have no functional swallow. Continue PPN. No gross electrolyte derangements. N.p.o., EGD with PEG placement scheduled 01/05/2022. Techinically challenging due to hx of prior PEG and sx. = Preop Ancef deferred as patient has been on antibiotic treatment for suspected aspiration pneumonia. 7-day course will be complete 01/06. Aspiration pneumonia With leukocytosis to 24, down trended - CT findings as above In the setting of dysphagia/regurgitation -7-day course --> 01/06. No hypoxia Chest discomfort Epigastric discomfort has resolved following an episode of emesis/regurgitat ion early next Per review of [place] provider's notes patient with a history of multivessel CAD, was not recommended for cardiac stenting per patient although cardiology note is not available for full review Is on Plavix therapy narrowed from dual antiplatelet therapy related to carotid stents ; No history of cardiac stents Troponin slightly elevated on admission, down trended consistent with volume depletion EKG shows sinus rhythm with ventricular bigeminy and left bundle branch block. No concordant ST elevations or excessively dis-concordant ST elevations appreciated EKG from PCPs office obtained, also shows bigeminy/LBBB similar to current Carvedilol 3.125 mg held while NPO. MTP Every 6 hours as needed IV order placed for beta-magi withdrawal while intolerant of p.o. ASA 81 mg and isosorbide were stopped as outpatient Pending PEG placement, is aware that while his antiplatelet meds are held for strict NPO is at increased risk of cardiac and stroke events. Continue Plavix when able to tolerate p.o. 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 We will convert to Synthroid IV at 30% dose reduction while n.p.o. HTN - MTP as above, meds held while NPO as above. 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 Hold morning of 01/04 in case PEG able to be performed Diet: NPO, pending PEG Dispo: Med Tele Code Status: DNR/DNI (2) Elevated troponin: (3) Bigeminy: (4) H/O carotid endarterectomy: (5) Hypertension: (6) History of throat cancer: (7) Aspiration pneumonia: (8) REUBEN (acute kidney injury): Admission and Anticipated Discharge Date Admission Date: December 30, 2021 Subjective No clinical change today, adequate blood pressure control. No chest pain, chest pressure, shortness of breath, lightheadedness, dizziness today. No change in swallowing function Did see gastro today. Is hopeful for PEG placement tomorrow, is aware that ability might be limited due to his history of surgery and prior placement. Patient is also aware he should still have outpatient follow-up for manometry and follow-up. Review of Systems Review of Systems: All systems reviewed & are unremarkable except as noted in Subjective Physical Exam Physical Exam: General: A&Ox3. NAD. Cooperative. HEENT: Atraumatic, normocephalic. Visiona/hearing grossly intact, [place]. PERLAA. Left neck asymmetry with thickening, well-healed. Voice is somewhat hoarse but speech fluent Pulm: CTAB A&P. -wheezes, -rales, -rhonchi. Symmetrical chest rise. No increase in work of breathing. No respiratory distress. Cardiac: RRR, +sm. Abdominal: Nontender, nondistended, soft. Results & Data Results & Data ([facility]) Vital Signs (Past 12 Hours) Vital Signs Temp Pulse Pulse Resp BP BP Pulse Ox 01/04/22 15:10 36.4 C L 66 60 17 147/80 H 95 01/04/22 11:19 36.5 C 67 17 188/90 H 96 01/04/22 10:26 65 01/04/22 09:00 65 01/04/22 07:07 36.5 C 70 18 178/96 H 93 01/04/22 05:00 63 144/81 H 01/04/22 04:19 36.5 C 61 17 152/78 H 96 PG Care Time/CCT Total # of Minutes Spent Total Time Spent with Patient: Total time spent is greater than 50% in coordination of care (as documented) at patient's floor/unit and/or counseling patient: Coding Level of Care Code 81853 Subseq Hosp Care Lvl 2 Diagnoses Dysphagia R13.10 Dysphagia type: unspecified Elevated troponin R77.8 Bigeminy I49.8 H/O carotid endarterectomy Z98.890 Hypertension I10 History of throat cancer Z85.819 Aspiration pneumonia J69.0 Aspiration pneumonia type: due to vomit Laterality: bilateral Lung location: lower lobe of lung REUBEN (acute kidney injury) N17.9 (1) Dysphagia Dysphagia type: unspecified Qualified Code(s): R13.10 - Dysphagia, unspecified (2) Aspiration pneumonia Aspiration pneumonia type: due to vomit Laterality: bilateral Lung location: lower lobe of lung Qualified Code(s): J69.0 - Pneumonitis due to inhalation of food and vomit
[2022-01-04] MEDS: STOP CLINOLIPID SCH (22:49)
[2022-01-05] MEDS: AMPICILLIN/SULBACTAM SOD 3,000 MG in 0.9 % SODIUM CHLORIDE 100 ML IV SCH ×5 (00:21→23:17)
[2022-01-05] MEDS: METOPROLOL TARTRATE 1 MG/ML VIAL IV SCH ×4 (03:30→20:36)
[2022-01-05 06:29] LABS: Basophils # (auto) 0.01 K/uL (0-0.2); Basophils % (auto) 0.1 %; Eosinophils # (auto) 0.45 K/uL (0-0.5); Eosinophils % (auto) 5.1 %; Hematocrit (blood only) 37.4 % (42-52); Hemoglobin 12.5 g/dL (14.0-18.0); Immature Granulocytes # (auto) 0.27 K/uL (0.00-0.02); Lymphocytes # (auto) 1.12 K/uL (1.2-3.4); Lymphocytes % (auto) 12.6 %; Mean Corpuscular Hemoglobin 31.1 pg (25-34); Mean Corpuscular Hgb Conc 33.4 g/dL (32-36); Monocytes # (auto) 0.85 K/uL (0.11-0.59); Monocytes % (auto) 9.6 %; Neutrophils # (auto) 6.18 K/uL (1.4-6.5); Neutrophils % (auto) 69.6 %; Platelet Count 181 K/uL (130-400); RDW Coefficient of Variation 14.2 % (11.5-14.5); RDW Standard Deviation 48.3 fL (36.4-46.3); Red Blood Count 4.02 M/uL (4.7-6.1); White Blood Count 8.88 K/uL (4.8-10.8)
[2022-01-05 06:50] LABS: BUN Creatinine Ratio 25.5 (10-20); Calcium 8.5 mg/dl (8.5-10.1); Creatinine Clr Calc Pharmacy 66.2 ml/min; Est GFR (African American) 85.2 ml/min; Est GFR (Non-African American) 73.6 ml/min; Magnesium 1.9 mg/dl (1.7-2.4); Phosphorus 3.4 mg/dl (2.5-4.9); Potassium 3.7 mmol/L (3.5-5.1)
--- NOTE | 2022-01-05 08:35 | Anesthesiology Consultation ---
Date of Service January 05, 2022 Assessment & Plan Chart Review Chart Review: Acceptable Risk for Surgery, Patient NOT seen in Pre Admission Testing and data entry supervisor initiated Consults Requested none History Surgery Operation Date: 12/31/21 13:40 Proposed Procedures p Esophagogastroduodenoscopy - Pedro López MD Operation Date: 12/31/21 16:00 Proposed Procedures p Esophagogastroduodenoscopy Dr. Maribel López MD Operation Date: 01/05/22 07:00 Proposed Procedures p Esophagogastroduodenoscopy with Gastric Tube Placement - Pedro López MD Operation Date: 01/05/22 16:15 Proposed Procedures p Esophagogastroduodenoscopy Dr. Maribel López MD Operation Date: 01/05/22 16:30 Proposed Procedures p EGD Gastric Tube Placement - Pedro López MD Height/Weight Height: 5 ft 11 in Weight: 82.2 kg Allergies Allergy/AdvReac Type Severity Reaction Status Date / Time No Known Allergies Allergy Unverified 12/30/21 14:02 Medications Home Medications Medication Instructions Recorded Confirmed Last Taken Lactobacillus acidophilus 0 mmu cells PO QAM 12/30/21 12/30/21 12/28/21 (Acidophilus) ascorbic acid (vitamin C) 1,000 mg 0 mg PO QA 12/30/21 12/30/21 12/28/21 tablet (Vitamin C) atorvastatin 40 mg tablet 40 mg PO QAM 12/30/21 12/30/21 12/28/21 carvedilol 3.125 mg tablet 3.125 mg PO BID 12/30/21 12/30/21 12/28/21 cholecalciferol (vitamin D3) 25 0 mcg PO QAM 12/30/21 12/30/21 12/28/21 mcg (1,000 unit) capsule (Vitamin D3) clopidogrel 75 mg tablet 75 mg PO QDL 12/30/21 12/30/21 12/28/21 ezetimibe 10 mg tablet 10 mg PO HS 12/30/21 12/30/21 12/28/21 famotidine 20 mg tablet 20 mg PO HS 12/30/21 12/30/21 12/28/21 levothyroxine 100 mcg tablet 100 mcg PO DAILYBB 12/30/21 12/30/21 12/28/21 (Euthyrox) spironolactone 25 mg tablet 12.5 mg PO QAM 12/30/21 12/30/21 12/28/21 sulfamethoxazole 800 1 tab PO QAM 12/30/21 12/30/21 12/28/21 mg-trimethoprim 160 mg tablet vitamin B complex 1 tab PO QAM 12/30/21 12/30/21 12/28/21 Active Medications Generic Name Dose Route Start Last Admin Trade Name Douglas PRN Reason Stop Dose Admin Heparin Sodium (Porcine) 5,000 units 12/30/21 22:00 01/03/22 15:01 Heparin Sod 5,000 Unit/0.5 Ml Vial SQ 01/29/22 21:59 5,000 units Q8 ALEJANDRO Administration Ampicillin Sodium/Sulbactam 108 mls @ 216 mls/hr 12/30/21 18:00 01/05/22 06:15 Sodium 3,000 mg/ Sodium IV 01/06/22 17:59 Infused Chloride Q6H ALEJANDRO Infusion Protocol Levothyroxine Sodium 75 mcg/ 3.75 mls @ 1.875 mls/min 12/30/21 19:00 01/02/22 08:51 Syringe IV 01/29/22 18:59 1.875 mls/min Q72H ALEJANDRO Administration Protocol Amino Acids 1,993 ml/ 1,993 mls @ 83 mls/hr 01/04/22 16:00 01/04/22 16:16 Nutrition (Parenteral) IV 01/05/22 15:59 83 mls/hr .Q24H ALEJANDRO Administration Protocol Metoprolol Tartrate 2.5 mg 01/01/22 16:00 01/05/22 03:30 Metoprolol Tartrate 1 Mg/Ml Vial IV 01/31/22 15:59 Not Given Q6H ALEJANDRO Miscellaneous 1 ea 01/03/22 22:00 01/04/22 22:49 Stop Clinolipid N/A 02/02/22 21:59 1 ea Q24H ALEJANDRO Administration NPO Date Last Intake of Fluids: 12/31/21 Time Last Intake of Fluids: 12:00 Last Intake of Fluids Comment: fluid in esophagus-full stomach Date Last Intake of Solids: 12/29/21 Time Last Intake of Solids: 17:30 Last Intake of Solids Comment: npo since midnight Past Medical History Medical History History of colon cancer History of throat cancer Hypertension Throat cancer Past Surgical History Surgical History H/O carotid endarterectomy History of bilateral knee replacement History of partial colectomy Past Anesthesia History hx of oropharyngeal CA- will use indirect laryngoscopy (video)for intubation Social History Smoking Status: Former smoker tobacco type: cigarettes Do You Dip or Chew Tobacco: No Hx Alcohol Use: No Hx Substance Use: No Physical Exam Vital Signs Last Vital Signs Temp 36.3 C L 01/05/22 07:41 Pulse 52 L 01/05/22 07:41 Resp 18 01/05/22 07:41 BP 147/69 H 01/05/22 07:41 Pulse Ox 97 01/05/22 07:41 Testing Laboratory Results 01/05/22 05:45 01/05/22 05:45 PT 12.5 Seconds (9.0-12.0) H 12/30/21 11:25 INR 1.2 (0.9-1.1) H 12/30/21 11:25 APTT 31.2 Seconds (21.0-31.0) H 12/30/21 11:25 12/30/21 12:58 Aerobic Blood Culture - Final Blood No growth in Aerobic bottle after 5 days. Anaerobic Blood Culture - Final No growth in Anaerobic bottle after 5 days. 12/30/21 12:50 Aerobic Blood Culture - Final Blood No growth in Aerobic bottle after 5 days. Anaerobic Blood Culture - Final No growth in Anaerobic bottle after 5 days. 01/05/22 06:04 POC Glucose 93 Electrocardiogram Date: 12/30/21 Sinus rhythm with frequent Premature ventricular complexes in a pattern of bigeminy Left axis deviation Left bundle branch block Abnormal ECG No previous ECGs available Confirmed by Lionel Ovalles ([id number]) on 12/31/2021 10:38:30 PM Echocardiogram Date: 12/31/21 EF: 50-55% LV Function: normal (Low normal) RWMA: + none Other Testing FL video swallow 01/01/22 CLINICAL HISTORY: assess for aspiration COMPARISON STUDY: No previous studies for comparison. FLUOROSCOPY TIME: 2.6 minutes. NUMBER OF IMAGES: 10 cine esophageal swallowing sequences FINDINGS: The patient was given barium of varying consistencies and observed under fluoroscopy with concurrent tape recording. Examination is performed in conjunction with a member of the speech pathology department. The patient was given the following consistencies of barium: Thin liquid, mildly thick liquid, moderately thick liquid, pudding, and cracker with paste. There was penetration and aspiration with thin barium liquid. There was also aspiration with mildly thick liquid and silent aspiration with pudding. IMPRESSION: Positive for penetration and aspiration
--- NOTE | 2022-01-05 08:37 | History & Physical Bridge Note ---
Date of Service January 05, 2022 History & Physical Bridge Note I have examined the patient, reviewed the History & Physical and in the interval since the performance of the History & Physical I have noted the following changes of clinical significance: no changes noted Proceed with EGD and peg tube placement risks/benefits and procedure discussed with patient, who agrees to proceed
--- NOTE | 2022-01-05 08:45 | History & Physical Bridge Note ---
Date of Service January 05, 2022 History & Physical Bridge Note I have reviewed the History & Physical and in the interval since the performance of the History & Physical I have noted the following changes of clinical significance: no changes noted Keep NPO & attempt PEG placement this morning.
[2022-01-05] MEDS ORDERED: fentaNYL citrate 100 MCG/2 ML VIAL ONE (08:46)
[2022-01-05] MEDS ORDERED: PROPOFOL IV EMULSION 10 MG/ML 20 ML VIAL IV ONE (08:46)
[2022-01-05] MEDS ORDERED: LIDOCAINE 2% 2 ML VIAL/AMP(20MG/ML) INFIL ONE (08:46)
--- NOTE | 2022-01-05 09:02 | Communication Note ---
Date of Service: January 05, 2022 Pt is listed as DNR on chart. I discussed this with pt and his . They decided he would like to have initial attempts made toward resuscitation if he were to during the procedure today since emergency drugs and equipment are readily available.
[2022-01-05] MEDS ORDERED: GLYCOPYRROLATE 0.2 MG/ML VIAL ONE (09:18)
[2022-01-05] MEDS ORDERED: PHENYLEPHRINE 100MCG/ML 5ML SYR ONE (09:18)
[2022-01-05] MEDS ORDERED: ONDANSETRON INJ 2 MG/ML 2 ML VIAL ONE (09:18)
--- NOTE | 2022-01-05 09:36 | GI REPORT ---
Patient Name: Wilton Lancaster Procedure Date: 01/05/2022 9:06 AM Date of : 1945 Admit Type: Inpatient Age: 76 Gender: Male Attending MD: Pedro López MD Procedure: Upper GI endoscopy Providers: Pedro López MD Referring MD: Wilton Linares Md Indications: Dysphagia, Place PEG due to dysphagia, Place PEG due to impaired swallowing Medicines: Monitored Anesthesia Care Complications: No immediate complications. Estimated blood loss: None. Estimated Blood Loss: Estimated blood loss: none. Procedure: Pre-Anesthesia Assessment: - Prior Anticoagulants: The patient has taken no previous anticoagulant or antiplatelet agents. - ASA Grade Assessment: III - A patient with severe systemic disease. After obtaining informed consent, the endoscope was passed under direct vision. Throughout the procedure, the patient's blood pressure, pulse, and oxygen saturations were monitored continuously. The Endoscope was introduced through the mouth, and advanced to the second part of duodenum. The upper GI endoscopy was accomplished without difficulty. The patient tolerated the procedure well. Findings: The examined esophagus was normal. The entire examined stomach was normal. The patient was placed in the supine position for PEG placement. The stomach was insufflated to appose gastric and abdominal reed. A site was located in the body of the stomach with excellent transillumination for placement. The abdominal wall was marked and prepped in a sterile manner. The area was anesthetized with 1 mL of 0.5% lidocaine. The trocar needle was introduced through the abdominal wall and into the stomach under direct endoscopic view. A snare was introduced through the endoscope and opened in the gastric lumen. The guide wire was passed through the trocar and into the open snare. The snare was closed around the guide wire. The endoscope and snare were removed, pulling the wire out through the mouth. A skin incision was made at the site of needle insertion. The endoscopically removable 20 Fr Marcelo-Cook gastrostomy tube was lubricated. The G-tube was tied to the guide wire and pulled through the mouth and into the stomach. The trocar needle was removed, and the gastrostomy tube was pulled out from the stomach through the skin. The external bumper was attached to the gastrostomy tube, and the tube was cut to remove the guide wire. The final position of the gastrostomy tube was confirmed by relook endoscopy, and skin marking noted to be 3 cm at the external bumper. The final tension and compression of the abdominal wall by the PEG tube and external bumper were checked and revealed that the bumper was loose and lightly touching the skin. The feeding tube was capped, and the tube site cleaned and dressed. The duodenal bulb and second portion of the duodenum were normal. Impression: - Normal esophagus. - Normal stomach. - Normal duodenal bulb and second portion of the duodenum. - An endoscopically removable PEG placement was successfully completed. - No specimens collected. Recommendation: - [facility]. - Please follow the post-PEG recommendations including: Nutrition consult for formula and volume, change dressing once per day, NPO x4 hrs then water today, may use PEG tomorrow for feedings, flush PEG daily with 60 ml water and clean site with soap and water daily and dry thoroughly. -increase protonix to 40 mg BID Pedro López MD 01/05/2022 9:36:14 AM This report has been signed electronically. Note Initiated On: 01/05/2022 9:06 AM Number of Addenda: 0 I attest to the content of the Intraoperative Record and orders documented therein, exceptions below {[id number]}
[2022-01-05] MEDS ORDERED: ePHEDrine sulfate 50 MG/ML SYR ONE (09:43)
--- NOTE | 2022-01-05 10:29 | Communication Note ---
Date of Service: January 05, 2022 Given patient's history of colon cancer and significant unintentional weight loss, would primary team consider obtaining a CT of the abdomen/pelvis to exclu de active acute issues beyond his inability to swallow.
[2022-01-05] MEDS: LEVOTHYROXINE SODIUM 75 MCG in SYRINGE 0 ML IV SCH (10:42)
[2022-01-05] MEDS ORDERED: ACETAMINOPHEN 1,000 MG/100 ML VIAL IV PRN (12:33)
[2022-01-05] MEDS ORDERED: OPTIRAY 320 100ml IV ONE (13:25)
--- NOTE | 2022-01-05 14:03 | CT Scan Report ---
CT SCAN OF THE ABDOMEN AND PELVIS WITH IV CONTRAST CLINICAL HISTORY: Weight loss. Reported history of colorectal cancer. COMPARISON STUDY: No priors. TECHNIQUE: Following the IV administration of 91 cc of Optiray 320, CT scan of the abdomen and pelvi s is performed from the lung bases to the proximal femora. Images are reviewed in the axial, sagittal , and coronal planes. IV contrast was administered without complication. A dose lowering technique wa s utilized adhering to the principles of ALARA. The examination is degraded by streak artifact from t he arms which could not be elevated above the abdomen. CT DOSE: 901.15 mGy.cm FINDINGS: Lung bases: The heart is mildly enlarged and without pericardial effusion. The coronary arteries are densely calcified. Numerous micronodules are present throughout both lung bases with associated tree- in-bud change. There is no lobar consolidation or pleural effusion. Liver: The contrast-enhanced liver is normal in size, contour, and attenuation. There is no intrahepa tic biliary ductal dilatation. The hepatic veins and portal veins are patent. Gallbladder: Surgically absent. Spleen: Normal in size and attenuation. Pancreas: Moderately atrophic and grossly unremarkable. Adrenal glands: Unremarkable. Kidneys: The contrast enhanced kidneys demonstrate cortical atrophy and are without hydronephrosis. T he kidneys enhance symmetrically. A 5 cm cyst is noted in the right kidney. Additional subcentimeter cortical hypodensities also likely represent cysts but are too small for definitive characterization. Abdominal vasculature: The abdominal aorta is normal in course and caliber noting moderate to advance d atherosclerotic calcification. Stomach and bowel: A gastrostomy tube is in place. Question previous right-sided colon resection. Ret ained enteric contrast is noted in the colon. There is advanced colonic diverticulosis without clear CT evidence of acute diverticulitis. No bowel obstruction is seen. The appendix is not identified an d may be surgically absent. There is rectosigmoid fecal retention. Peritoneum: There is no intraperitoneal free air or abdominal ascites. Lymphadenopathy: None. Pelvic viscera: The prostate gland is enlarged and heterogeneous noting median lobe hypertrophy. The bladder wall is thickened and trabeculated indicating chronic outlet obstruction. Skeletal structures: The skeletal structures are osteopenic. The skeletal structures are osteopenic. There is moderate to advanced lumbosacral spondylosis. No lytic or blastic lesions are seen. Soft tissues: Foci of subcutaneous gas at the site of the PEG tube insertion site may be related to r ecent instrumentation. IMPRESSION: 1. No acute infectious or inflammatory findings are identified in the abdomen or pelvis. 2. There is no evidence of metastatic disease in the abdomen or pelvis. 3. Numerous micronodules are present throughout both lung bases with foci of tree-in-bud change. The appearance suggests a chronic infectious/inflammatory pneumonitis. Clinical correlation will be requi red. Consider nonemergent follow-up with pulmonology. 4. Advanced colonic diverticulosis without CT evidence of acute diverticulitis. 5. Additional findings as above. ACT 112: Negative or not required by law. Electronically signed by: Raul Kimbrough M.D. 01/05/2022 2:01 PM
--- NOTE | 2022-01-05 14:44 | Anesthesiology Progress Note ---
Date of Service January 05, 2022 Anesthesia Post Procedure Vital Signs Vital Signs: Temp Pulse Pulse Pulse Resp BP BP 01/05/22 10:33 77 104/67 01/05/22 10:26 77 18 01/05/22 10:09 70 18 01/05/22 09:56 69 16 01/05/22 09:42 74 12 01/05/22 08:46 01/05/22 08:45 01/05/22 08:40 36.8 C 95 H 18 01/05/22 08:00 66 01/05/22 07:41 36.3 C L 52 L 18 147/69 H 01/05/22 03:30 55 L 120/69 01/05/22 02:50 36.9 C 55 L 18 120/69 01/04/22 23:00 36.6 C 57 L 16 129/69 01/04/22 22:20 67 01/04/22 20:40 64 169/82 H 01/04/22 19:55 80 01/04/22 19:42 78 201/86 H 01/04/22 19:20 37.0 C 66 20 197/90 H 01/04/22 16:24 60 01/04/22 15:10 36.4 C L 66 60 17 147/80 H BP Pulse Ox 01/05/22 10:33 01/05/22 10:26 104/67 94 01/05/22 10:09 128/74 95 01/05/22 09:56 102/55 L 95 01/05/22 09:42 127/72 100 01/05/22 08:46 195/106 H 01/05/22 08:45 207/88 H 01/05/22 08:40 196/108 H 98 01/05/22 08:00 01/05/22 07:41 97 01/05/22 03:30 01/05/22 02:50 94 01/04/22 23:00 94 01/04/22 22:20 01/04/22 20:40 01/04/22 19:55 01/04/22 19:42 01/04/22 19:20 95 01/04/22 16:24 01/04/22 15:10 95 Pain Intensity Abdomen: Pain Intensity: 2 Transfer of Care Handoff Completed per policy Notes Mental Status: alert / awake / arousable and participated in evaluation Patient Amnestic to Procedure: Yes Nausea / Vomiting: adequately controlled Pain: adequately controlled Airway Patency, RR, SpO2: stable & adequate BP & HR: stable & adequate Hydration State: stable & adequate Anesthetic Complications: no major complications apparent and Pt Satisfied with anesthetic care
[2022-01-05] MEDS ORDERED: D5W IV SCH (16:00)
[2022-01-05] MEDS ORDERED: CLINOLIPID 20% IV FAT EMULSION 250 ML IV SCH ×2 (16:00)
[2022-01-05] MEDS ORDERED: PERIPHERAL TPN IV SCH (16:00)
[2022-01-05] MEDS ORDERED: AMINO ACIDS 4.25% IV SCH (16:00)
[2022-01-05] MEDS ORDERED: bisacodyL 10 MG SUPP PR PRN (17:25)
--- NOTE | 2022-01-05 17:28 | Hospitalist Progress Note ---
Date of Service January 05, 2022 Assessment & Plan (1) Dysphagia: Plan: Wilton is a 76-year-old male with a past medical history of carotid endarterectomy and stenting, hx of throat cancer with surgery/chemo/radiation in 2000 in [place], hypertension, and unclear cardiac history who receives medical care in [place] who is visiting family in [place] and who presents with dysphagia the inability to swallow liquids/solids/pills in the last 4 days. 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 No findings are seen to suggest recurrent or metastatic disease. The trachea and esophagus are patent. 2. Prominence of the esophagus is nonspecific, clinical correlation is recommended to exclude achalasia or dysmotility. CT-Ch: Mildly distended fluid/debris filled esophagus. Intraluminal radiodense structure within the mid esophageal lumen may represent a pill fragment. Cholecystectomy. Calcified granulomata of the liver. Gynecomastia. Indeterminate subcutaneous 1.9 cm soft tissue attenuating lesion of the left posterior shoulder. Degenerative changes of the shoulders and spine. Extensive mid to lower lung zone reticular nodular opacities are suggestive of an infectious or inflammatory pneumonitis. Follow-up imaging following treatment course is recommended. No pleural effusion or lymphadenopathy. Mild tracheobronchial secretions. N.p.o. -Discomfort improved morning of 12/31 Following EGD patient clearing saliva better, but with concerns for continued aspiration and speech evaluation.: Video swallow patient found to have no functional swallow. PPN continued through today, discontinued for tomorrow in anticipation of PEG feeds PEG placed 01/05. Per GI n.p.o. x4 hours, then water today, may use for feedings tomorrow. Increase Protonix to 40 twice daily Nutrition consulted. Will start tube feeds tomorrow with [employer] HN at 8 AM. PEG tube at 10 cc/h advance as tolerated by 10 cc to a goal rate of 70/h. At goal we will provide 2016 kcal, 91 g protein, 1357 cc free water, 275 g carbohydrates. Every 4 hour 110 cc free water flushes. Too high of risk for bolus tube feeds, no functional swallow, aspiration precautions, head of bed elevated History of colon cancer CT with contrast without evidence of cancer recurrence or metastasis. Rectosigmoid fecal retention is appreciated. Lung nodularity as noted. Miralax tomorrow w/ PEG available, bisacodyl NC as needed Aspiration pneumonia With leukocytosis to 24, down trended - CT findings as above In the setting of dysphagia/regurgitation -7-day course --> 01/06. No hypoxia - Ab CT Micronodules tree-in-bud? Pneumonitis. Patient with aspiration event and treated for pneumonia with nodular opacities suspicious for infectious pneumonitis as noted. Once treatment completed --> repeat imaging for resolution and follow-up Chest discomfort Epigastric discomfort has resolved following an episode of emesis/regurgitation early next Per review of [place] provider's notes patient with a history of multivessel CAD, was not recommended for cardiac stenting per patient although cardiology note is not available for full review Is on Plavix therapy narrowed from dual antiplatelet therapy related to carotid stents ; No history of cardiac stents Troponin slightly elevated on admission, down trended consistent with volume depletion EKG shows sinus rhythm with ventricular bigeminy and left bundle branch block. No concordant ST elevations or excessively dis-concordant ST elevations appreciated EKG from PCPs office obtained, also shows bigeminy/LBBB similar to current Carvedilol 3.125 mg held while NPO. MTP Every 6 hours as needed IV order placed for beta-magi withdrawal while intolerant of p.o. ASA 81 mg and isosorbide were stopped as outpatient Continue Plavix when able to tolerate p.o. 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 We will convert to Synthroid IV at 30% dose reduction while n.p.o. HTN - MTP as above, meds held while NPO as above. 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 Hold morning of 01/04 in case PEG able to be performed Diet: NPO, pending PEG Dispo: Med Tele Code Status: DNR/DNI (2) Elevated troponin: (3) Bigeminy: (4) H/O carotid endarterectomy: (5) Hypertension: (6) History of throat cancer: (7) Aspiration pneumonia: (8) REUBEN (acute kidney injury): Admission and Anticipated Discharge Date Admission Date: December 30, 2021 Zechariah Núñez is seen at the bedside in the morning, and then on reassessment in the afternoon following PEG placement. Underwent PEG placement today, reports he is comfortable and in a little pain, but which feels mostly tolerable. Would like to try some Tylenol. No change in swallowing. Denies fever, chills, sweats, chest pain, chest pressure, lightheaded, dizziness. Some postsurgical tenderness at dressing after procedure, otherwise denies abdominal pain. He is eager to start nutrition and progress home Review of Systems Review of Systems: All systems reviewed & are unremarkable except as noted in Subjective Physical Exam Physical Exam: General: A&Ox3. NAD. Cooperative. HEENT: Atraumatic, normocephalic. Vision/hearing grossly intact, [place]. Left neck asymmetry with thickening, well-healed. Voice is soft/hoarse but speech fluent Pulm: CTAB A&P. -wheezes, -rales, -rhonchi. Symmetrical chest rise. No increase in work of breathing. No respiratory distress. Cardiac: RRR, +sm. Abdominal: Nontender, nondistended, soft. On afternoon reassessment PEG tube dressing is in place, C/D/I and minimally tender overlying dressing Results & Data Results & Data ([facility]) Vital Signs (Past 12 Hours) Vital Signs Temp Pulse Pulse Pulse Resp BP BP 01/05/22 16:00 57 L 01/05/22 10:33 77 104/67 01/05/22 10:26 77 18 01/05/22 10:09 70 18 01/05/22 09:56 69 16 01/05/22 09:42 74 12 01/05/22 08:46 01/05/22 08:45 01/05/22 08:40 36.8 C 95 H 18 01/05/22 08:00 66 01/05/22 07:41 36.3 C L 52 L 18 147/69 H BP Pulse Ox 01/05/22 16:00 01/05/22 10:33 01/05/22 10:26 104/67 94 01/05/22 10:09 128/74 95 01/05/22 09:56 102/55 L 95 01/05/22 09:42 127/72 100 01/05/22 08:46 195/106 H 01/05/22 08:45 207/88 H 01/05/22 08:40 196/108 H 98 01/05/22 08:00 01/05/22 07:41 97 PG Care Time/CCT Total # of Minutes Spent Total Time Spent with Patient: Total time spent is greater than 50% in coordination of care (as documented) at patient's floor/unit and/or counseling patient: Coding Level of Care Code 20844 Subseq Hosp Care Lvl 3 Diagnoses Dysphagia R13.10 Dysphagia type: unspecified Elevated troponin R77.8 Bigeminy I49.8 H/O carotid endarterectomy Z98.890 Hypertension I10 History of throat cancer Z85.819 Aspiration pneumonia J69.0 Aspiration pneumonia type: due to vomit Laterality: bilateral Lung location: lower lobe of lung REUBEN (acute kidney injury) N17.9 (1) Dysphagia Dysphagia type: unspecified Qualified Code(s): R13.10 - Dysphagia, unspecified (2) Aspiration pneumonia Aspiration pneumonia type: due to vomit Laterality: bilateral Lung location: lower lobe of lung Qualified Code(s): J69.0 - Pneumonitis due to inhalation of food and vomit
[2022-01-05] MEDS: PANTOprazole 40 MG in SYRINGE 0 ML IV SCH (20:36)
[2022-01-05] MEDS ORDERED: STOP CLINOLIPID ONE (21:00)
[2022-01-06] MEDS: METOPROLOL TARTRATE 1 MG/ML VIAL IV SCH ×2 (04:10→08:10)
[2022-01-06] MEDS: AMPICILLIN/SULBACTAM SOD 3,000 MG in 0.9 % SODIUM CHLORIDE 100 ML IV SCH ×2 (05:57→11:57)
[2022-01-06 06:44] LABS: BUN Creatinine Ratio 24.5 (10-20); Basophils # (auto) 0.04 K/uL (0-0.2); Basophils % (auto) 0.4 %; Calcium 8.6 mg/dl (8.5-10.1); Creatinine Clr Calc Pharmacy 61.2 ml/min; Eosinophils % (auto) 7.1 %; Est GFR (African American) 77.5 ml/min; Est GFR (Non-African American) 66.9 ml/min; Hematocrit (blood only) 38.9 % (42-52); Immature Granulocytes # (auto) 0.37 K/uL (0.00-0.02); Immature Granulocytes % (auto) 3.7 %; Lymphocytes # (auto) 1.16 K/uL (1.2-3.4); Lymphocytes % (auto) 11.7 %; Mean Corpuscular Hemoglobin 31.8 pg (25-34); Mean Corpuscular Hgb Conc 33.4 g/dL (32-36); Mean Corpuscular Volume 95.1 fL (80-100); Monocytes # (auto) 0.82 K/uL (0.11-0.59); Monocytes % (auto) 8.3 %; Neutrophils % (auto) 68.8 %; Platelet Count 184 K/uL (130-400); Potassium 3.9 mmol/L (3.5-5.1); RDW Coefficient of Variation 14.3 % (11.5-14.5); RDW Standard Deviation 49.2 fL (36.4-46.3); Red Blood Count 4.09 M/uL (4.7-6.1); White Blood Count 9.89 K/uL (4.8-10.8)
[2022-01-06] MEDS ORDERED: FIBERSOURCE HN 1.2 CAL 1000 ML BAG GT SCH (08:00)
[2022-01-06] MEDS: PANTOprazole 40 MG in SYRINGE 0 ML IV SCH ×2 (08:09→20:24)
[2022-01-06] MEDS: TUBE FEEDING WATER FLUSH GT SCH ×4 (08:09→20:23)
[2022-01-06] MEDS: POLYETHYLENE (MIRALAX) 17 GM PACK PO SCH (08:09)
[2022-01-06] MEDS: carvediloL 3.125 MG TAB PEG SCH ×2 (10:25→20:23)
--- NOTE | 2022-01-06 14:08 | Hospitalist Progress Note ---
Date of Service January 06, 2022 Assessment & Plan (1) Dysphagia: Plan: Wilton is a 76-year-old male with a past medical history of carotid endarterectomy and stenting, hx of throat cancer with surgery/chemo/radiation in 2000 in [place], hypertension, and unclear cardiac history who receives medical care in [place] who is visiting family in [place] and who presents with dysphagia the inability to swallow liquids/solids/pills in the last 4 days. 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 No findings are seen to suggest recurrent or metastatic disease. The trachea and esophagus are patent. 2. Prominence of the esophagus is nonspecific, clinical correlation is recommended to exclude achalasia or dysmotility. CT-Ch: Mildly distended fluid/debris filled esophagus. Intraluminal radiodense structure within the mid esophageal lumen may represent a pill fragment. Cholecystectomy. Calcified granulomata of the liver. Gynecomastia. Indeterminate subcutaneous 1.9 cm soft tissue attenuating lesion of the left posterior shoulder. Degenerative changes of the shoulders and spine. Extensive mid to lower lung zone reticular nodular opacities are suggestive of an infectious or inflammatory pneumonitis. Follow-up imaging following treatment course is recommended. No pleural effusion or lymphadenopathy. Mild tracheobronchial secretions. Postoperative day 1 after insertion of PEG tube. Tube feeds initiated today, January 06. IV medications switched to PEG tube route. PPN discontinued History of colon cancer CT with contrast negative for evidence of cancer recurrence or metastasis. Rectosigmoid fecal retention is appreciated. Lung nodularity as noted. Aspiration pneumonia - CT findings noted In the setting of dysphagia/regurgitation -7-day antibiotic course through 01/06. No hypoxia - Ab CT Micronodules tree-in-bud? Suspected pneumonitis. Patient with aspiration event and treated for pneumonia with nodular opacities suspicious for infectious pneumonitis as noted. Is on Plavix therapy alone related to carotid stents . 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 Transiently on IV thyroid replacement and now switched back to PEG route HTN -Metoprolol therapy. Prerenal Azotemia - Admit Cr 1.7 rapidly decreased to normal with IV fluids . Monitor intake and output. Serial lab studies DVT PPx: Heparin SQ Dispo: Either home or SNF. OT and PT evaluations pending. (2) Elevated troponin: (3) Bigeminy: (4) H/O carotid endarterectomy: (5) Hypertension: (6) History of throat cancer: (7) Aspiration pneumonia: (8) REUBEN (acute kidney injury): Admission and Anticipated Discharge Date Admission Date: December 30, 2021 Subjective Alert and oriented. Postoperative day #1 after PEG tube placement. Tube feedings have been started with goal rate 70 cc/h. IV metoprolol and thyroid replacement switched to oral replacement. OT and PT assessments requested. Possible discharge to home tomorrow, January 07 Review of Systems Review of Systems: Constitutional-no fever or chills ENT-no blurred vision, no double vision, no epistaxis, no sore throat Respiratory-no cough, no wheezing, no shortness of breath Cardiac-no palpitations, no chest pain, no syncope GI-no nausea, vomiting, diarrhea, melena, hematochezia -no urinary retention, no urinary incontinence, no dysuria, no hematuria Musculoskeletal-no joint pain, no muscle tenderness Skin-no bruising, no rashes, no pruritus Neuro-no isolated weakness, no paresthesia, no weakness Psych-no depression, no anxiety Physical Exam Physical Exam: General-alert and oriented x3, no fevers, no chills HEENT-head atraumatic and normocephalic, TMs intact bilaterally, pupils equal and reactive to light, extraocular muscles intact Neck-no lymphadenopathy or thyromegaly, trachea midline Chest-clear to auscultation percussion. No rales wheezing or rhonchi Cardiac-regular rate and rhythm, normal S1 and S2, no murmurs Abdomen-EG tube now in place. Insertion site is unremarkable. Bowel sounds are active. Extremities-no cyanosis, clubbing, or edema Neuro-cranial nerves II through XII intact, motor and sensory function within normal limits, strength symmetrical , no focal deficits Psych-normal affect, normal mood Results & Data Results & Data ([facility]) Vital Signs (Past 12 Hours) Vital Signs Temp Pulse Pulse Pulse Resp BP BP 01/06/22 11:33 36.5 C 73 17 189/87 H 01/06/22 08:10 55 L 170/66 H 01/06/22 07:48 36.5 C 55 L 18 170/66 H 01/06/22 04:10 56 L 01/06/22 04:08 36.7 C 56 L 16 158/74 H Pulse Ox 01/06/22 11:33 97 01/06/22 08:10 01/06/22 07:48 97 01/06/22 04:10 01/06/22 04:08 96 Laboratory Results 01/06/22 05:47 01/06/22 05:47 PG Care Time/CCT Total # of Minutes Spent Total Time Spent with Patient: Total time spent is greater than 50% in coordination of care (as documented) at patient's floor/unit and/or counseling patient: Coding Level of Care Code 62730 Subseq Hosp Care Lvl 3 Diagnoses Dysphagia R13.10 Dysphagia type: unspecified Elevated troponin R77.8 Bigeminy I49.8 H/O carotid endarterectomy Z98.890 Hypertension I10 History of throat cancer Z85.819 Aspiration pneumonia J69.0 Aspiration pneumonia type: due to vomit Laterality: bilateral Lung location: lower lobe of lung REUBEN (acute kidney injury) N17.9 (1) Dysphagia Dysphagia type: unspecified Qualified Code(s): R13.10 - Dysphagia, unspecified (2) Aspiration pneumonia Aspiration pneumonia type: due to vomit Laterality: bilateral Lung location: lower lobe of lung Qualified Code(s): J69.0 - Pneumonitis due to inhalation of food and vomit
[2022-01-07] MEDS: TUBE FEEDING WATER FLUSH GT SCH ×3 (00:04→08:55)
[2022-01-07] MEDS ORDERED: LEVOTHYROXINE SODIUM 100 MCG TABLET NG SCH (06:30)
[2022-01-07] MEDS: POLYETHYLENE (MIRALAX) 17 GM PACK PO SCH (08:55)
[2022-01-07] MEDS: carvediloL 3.125 MG TAB PEG SCH (08:55)
[2022-01-07] MEDS: PANTOprazole 40 MG in SYRINGE 0 ML IV SCH (08:55)
--- NOTE | 2022-01-07 10:56 | Hospitalist Progress Note ---
Date of Service January 07, 2022 Assessment & Plan (1) Dysphagia: Plan: Wilton is a 76-year-old male with a past medical history of carotid endarterectomy and stenting, hx of throat cancer with surgery/chemo/radiation in 2000 in [place], hypertension, and unclear cardiac history who receives medical care in [place] who is visiting family in [place] and who presents with dysphagia the inability to swallow liquids/solids/pills in the last 4 days. 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 No findings are seen to suggest recurrent or metastatic disease. The trachea and esophagus are patent. 2. Prominence of the esophagus is nonspecific, clinical correlation is recommended to exclude achalasia or dysmotility. CT-Ch: Mildly distended fluid/debris filled esophagus. Intraluminal radiodense structure within the mid esophageal lumen may represent a pill fragment. Cholecystectomy. Calcified granulomata of the liver. Gynecomastia. Indeterminate subcutaneous 1.9 cm soft tissue attenuating lesion of the left posterior shoulder. Degenerative changes of the shoulders and spine. Extensive mid to lower lung zone reticular nodular opacities are suggestive of an infectious or inflammatory pneumonitis. Follow-up imaging following treatment course is recommended. No pleural effusion or lymphadenopathy. Mild tracheobronchial secretions. Postoperative day 2 after insertion of PEG tube. Continuous tube feeds initiated on January 06. We will switch to bolus feeding today, January [address] with contrast negative for evidence of cancer recurrence or metastasis. Rectosigmoid fecal retention is appreciated. Lung nodularity as noted. Aspiration pneumonia - CT findings noted In the setting of dysphagia/regurgitation -7-day antibiotic course completed through 01/06. No hypoxia - Ab CT Micronodules tree-in-bud? Suspected pneumonitis. Patient with aspiration event and treated for pneumonia with nodular opacities suspicious for infectious pneumonitis as noted. Is on Plavix therapy alone related to carotid stents . 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 Transiently on IV thyroid replacement and now switched back to PEG route HTN -Metoprolol therapy. Prerenal Azotemia - Admit Cr 1.7 rapidly decreased to normal with IV fluids . Monitor intake and output. Serial lab studies DVT PPx: Heparin SQ Dispo: Discharge to home today, January 07 with home health services. (2) Elevated troponin: (3) Bigeminy: (4) H/O carotid endarterectomy: (5) Hypertension: (6) History of throat cancer: (7) Aspiration pneumonia: (8) REUBEN (acute kidney injury): Admission and Anticipated Discharge Date Admission Date: December 30, 2021 Subjective Alert and oriented. He is tolerating continuous tube feedings. We will switch to bolus feeding so he is not tied down to a continuous tube feeding device. He will be discharged home today, January 07. PEG tube insertion site is clean and dry. Review of Systems Review of Systems: Constitutional-no fever or chills ENT-no blurred vision, no double vision, no epistaxis, no sore throat Respiratory-no cough, no wheezing, no shortness of breath Cardiac-no palpitations, no chest pain, no syncope GI-no nausea, vomiting, diarrhea, melena, hematochezia -no urinary retention, no urinary incontinence, no dysuria, no hematuria Musculoskeletal-no joint pain, no muscle tenderness Skin-no bruising, no rashes, no pruritus Neuro-no isolated weakness, no paresthesia, no weakness Psych-no depression, no anxiety Physical Exam Physical Exam: General-alert and oriented x3, no fevers, no chills HEENT-head atraumatic and normocephalic, TMs intact bilaterally, pupils equal and reactive to light, extraocular muscles intact Neck-no lymphadenopathy or thyromegaly, trachea midline. Postoperative changes are noted from remote surgery Chest-clear to auscultation percussion. No rales wheezing or rhonchi Cardiac-regular rate and rhythm, normal S1 and S2, no murmurs Abdomen-normal bowel sounds, nontender, no hepatosplenomegaly. PEG tube insertion site is unremarkable Extremities-no cyanosis, clubbing, or edema Neuro-cranial nerves II through XII intact, motor and sensory function within normal limits, strength symmetrical , no focal deficits Psych-normal affect, normal mood Results & Data Results & Data ([facility]) Vital Signs (Past 12 Hours) Vital Signs Temp Pulse Pulse Resp BP Pulse Ox 01/07/22 08:07 36.6 C 58 L 18 166/94 H 97 06/30/22 07:32 70 01/07/22 04:00 36.5 C 64 18 134/67 94 01/06/22 23:56 70 01/06/22 23:00 36.6 C 68 20 139/73 92 PG Care Time/CCT Total # of Minutes Spent Total Time Spent with Patient: Total time spent is greater than 50% in coordination of care (as documented) at patient's floor/unit and/or counseling patient: Coding Level of Care Code 37585 Subseq Hosp Care Lvl 3 Diagnoses Dysphagia R13.10 Dysphagia type: unspecified Elevated troponin R77.8 Bigeminy I49.8 H/O carotid endarterectomy Z98.890 Hypertension I10 History of throat cancer Z85.819 Aspiration pneumonia J69.0 Aspiration pneumonia type: due to vomit Laterality: bilateral Lung location: lower lobe of lung REUBEN (acute kidney injury) N17.9 (1) Dysphagia Dysphagia type: unspecified Qualified Code(s): R13.10 - Dysphagia, unspecified (2) Aspiration pneumonia Aspiration pneumonia type: due to vomit Laterality: bilateral Lung location: lower lobe of lung Qualified Code(s): J69.0 - Pneumonitis due to inhalation of food and vomit
--- NOTE | 2022-01-07 10:59 | Discharge Summary ---
Date of Service January 07, 2022 Admission HPI Per Admitting Provider "Can't keep nothing down. If I bend over just runs out my mouth. Not eating nothing." Rapidly worsening 4 days ago. Prior to that was having some difficulty progressive with solids and liquids and clearing spit. Seems to have been building up for a few weeks but really got worse quickly starting on Tuesday with compelte intolerance to food, water, and pills. Regurgitates food immediately on trying, denies N/V. Last time he could eat/drink relatively OK was ~1 week ago, was able to eat a cheeseburger (half) withotu n/v/pain. Patient is visiting from [place]. History of throat cancer 2000, chemo/radiation/surgery. Went well at the time. Was done in [place]. +Nose dripping constnatly. Can't cough well. Cannot clear saliva well with swallowing. No nausea/vomiting No diarrhea/constipation + weight loss over the last several months with very poor intake. Endorses mild shortness of breath and fatigue, both seems constant in the last day Endorses mild constant epigastric pain with a little in his chest unchagned in the last day or two Last endoscopy in 2020 in [place] for a GIB (no ulcers were seen) in [place]. Hx of valve disease, not sure of the details. Told he has a 'weak heart and could use a stend in the valve or heart, but not sure. Has 2 carotid stents.' No history of heart attacks Pt is not sure was his normal EKG is like PCP is Dr. Ayala in [place], [place]. Meds by phone review: Levothyroxine 100mcg [place] 25mg Ezetimbe 10mg Atorvastatin 40mg Carvedilol 3.125mg Isosorbide mono 20 Aspirin 81 STOPPED for plaavix monotherapy. plavix 75mg enalapril 5mg WAS STOPPED. Isosorbide Mononitrate was STOPPED. Bilat knee replacement 1994. Carotid stents. Colon cancer with resection at [place]. [place]. No PCP here. Medical History: Reviewed Medications: REviewed pts record (has phone list available at bedside). Surgical History: Reviewed Allergies: Reviewed Social History: No tobacco product use. No alcohol use, no RR drug use. Code Status: Surrogate would be Tyra Lancaster . DNR/DNI per patient. Principal Diagnosis Chronic dysphagia, aspiration pneumonia, acute on chronic kidney disease Discharge Exam General-alert and oriented x3, no fevers, no chills HEENT-head atraumatic and normocephalic, TMs intact bilaterally, pupils equal and reactive to light, extraocular muscles intact Neck-no lymphadenopathy or thyromegaly, trachea midline. Postoperative changes evident from remote surgery Chest-clear to auscultation percussion. No rales wheezing or rhonchi Cardiac-regular rate and rhythm, normal S1 and S2, no murmurs Abdomen-normal bowel sounds, nontender, no hepatosplenomegaly. PEG tube insertion site is unremarkable Extremities-no cyanosis, clubbing, or edema Neuro-cranial nerves II through XII intact, motor and sensory function within normal limits, strength symmetrical , no focal deficits Psych-normal affect, normal mood Discharge Data Allergies Allergy/AdvReac Type Severity Reaction Status Date / Time No Known Allergies Allergy Unverified 12/30/21 14:02 Consultations 12/30/21 13:07 ED Decision to Admit Stat 12/30/21 16:52 Consult Gastroenterology Routine Procedures Performed Operation Date: 12/31/21 13:40 Actual Procedures p EGD Biopsy Cytology - Pedro López MD Operation Date: 12/31/21 16:00 <No data on this case meets the specified criteria> Operation Date: 01/05/22 07:00 <No data on this case meets the specified criteria> Operation Date: 01/05/22 16:15 <No data on this case meets the specified criteria> Operation Date: 01/05/22 16:30 Actual Procedures p EGD Gastric Tube Placement(Not Applicable) - Pedro López MD Ordered Studies 12/30/21 11:13 CT chest diagnostic wo con Stat CT soft tissue neck wo con Stat 01/01/22 13:30 FL video swallow Routine 01/05/22 12:31 CT abd pelvis IV con only Routine Hospital Course (1) Dysphagia: Wilton is a 76-year-old male with a past medical history of carotid endarterectomy and stenting, hx of throat cancer with surgery/chemo/radiation in 2000 in [place], hypertension, and unclear cardiac history who receives medical care in [place] who is visiting family in [place] and who presents with dysphagia the inability to swallow liquids/solids/pills in the last 4 days. Dysphagia Complete inability to swallow solids, liquids, or pills for 4 days [employer] Patient does endorse some gradually worsening tolerance to swallowing, but was able to eat half a cheeseburger without difficulty approximately 1 week ago -No evidence of recurrence of malignancy on imaging Soft Tissue neck CT: 1. No findings are seen to suggest recurrent or metastatic disease. The trachea and esophagus are patent. 2. Prominence of the esophagus is nonspecific, clinical correlation is recommended to exclude achalasia or dysmotility. CT-Ch: Mildly distended fluid/debris filled esophagus. Intraluminal radiodense structure within the mid esophageal lumen may represent a pill fragment. Cholecystectomy. Calcified granulomata of the liver. Gynecomastia. Indeterminate subcutaneous 1.9 cm soft tissue attenuating lesion of the left posterior shoulder. Degenerative changes of the shoulders and spine. Extensive mid to lower lung zone reticular nodular opacities are suggestive of an infectious or inflammatory pneumonitis. Follow-up imaging following treatment course is recommended. No pleural effusion or lymphadenopathy. Mild tracheobronchial secretions. Postoperative day 2 after insertion of PEG tube. Continuous tube feeds initiated on January 06. We will switch to bolus feeding todayJanuary [address] with contrast negative for evidence of cancer recurrence or metastasis. Rectosigmoid fecal retention is appreciated. Lung nodularity as noted. Aspiration pneumonia - CT findings noted In the setting of dysphagia/regurgitation -7-day antibiotic course completed through 01/06. No hypoxia - Ab CT Micronodules tree-in-bud? Suspected pneumonitis. Patient with aspiration event and treated for pneumonia with nodular opacities suspicious for infectious pneumonitis as noted. Is on Plavix therapy alone related to carotid stents . No history of cardiac stents Hypothyroidism Patient takes Synthroid 100 mcg [employer] Has not been able to take thyroid medications for 3-4 days due to intolerance to p.o. Transiently on IV thyroid replacement and now switched back to PEG route HTN -Metoprolol therapy. Prerenal Azotemia - Admit Cr 1.7 rapidly decreased to normal with IV fluids . Monitor intake and output. Serial lab studies DVT PPx: Heparin SQ Dispo: Discharge to home todayJanuary 07 with home health services. (2) Elevated troponin: (3) Bigeminy: (4) H/O carotid endarterectomy: (5) Hypertension: (6) History of throat cancer: (7) Aspiration pneumonia: (8) REUBEN (acute kidney injury): Total Time Total Time Spent Total Time Spent (In Minutes): 35 minutes Discharge Plan Discharge Items Patient Disposition: Home - Home Health Services Reason For Visit: DYSPHAGIA, INABILITY TO SWALLOW SOLIDS/LIQUIDS Discharge Diagnosis: Chronic dysphagia, aspiration pneumonia, acute on chronic kidney disease Activity: Resume your previous activity Non-emergency contact: Primary Care Provider Call non-emergency contact if: you have any medication questions and your symptoms worsen Follow-up/Referrals: PCP,NO [Primary Care Provider] - Diet: Other - See Diet Comment Diet Comment: 1 can of Ensure 3 times daily followed by 100 cc of water 3 times daily Addtl Attending Provider Instructions: Tube feeding 3 times daily as directed Pending Studies at Discharge: No Stand-Alone Forms: My [employer], Smoking Cessation Medications and DC Order Prescriptions: Continued atorvastatin 40 mg tablet 40 mg PO QAM RF: 0 ascorbic acid (vitamin C) [Vitamin C] 1,000 mg Tablet 0 mg PO QAM RF: 0 sulfamethoxazole-trimethoprim 800-160 mg tablet 1 tab PO QAM RF: 0 spironolactone 25 mg tablet 12.5 mg PO QAM RF: 0 carvedilol 3.125 mg tablet 3.125 mg PO BID RF: 0 levothyroxine [Euthyrox] 100 mcg tablet 100 mcg PO DAILYBB RF: 0 famotidine 20 mg tablet 20 mg PO HS RF: 0 vitamin B complex Tablet 1 tab PO QAM RF: 0 Acidophilus Capsule 0 mmu cells PO QAM RF: 0 cholecalciferol (vitamin D3) [Vitamin D3] 25 mcg (1,000 unit) Capsule 0 mcg PO QAM RF: 0 ezetimibe 10 mg tablet 10 mg PO HS RF: 0 clopidogrel 75 mg tablet 75 mg PO QDL RF: 0 Discharge Orders: Discharge Order (Routine); Ordered 01/07/22 Ordered By: Mynor Harden Admission Data Admit Date/Time: 12/30/21 13:51 Attending Provider: Mynor Harden Admit Provider: Wilton Linares Primary Care Provider: PCP,NO Other Providers: Wilton Linares ; Pedro López Coding Level of Care Code D/C DAY MANAGEMENT >30 MINS Diagnoses Dysphagia R13.10 Dysphagia type: unspecified Elevated troponin R77.8 Bigeminy I49.8 H/O carotid endarterectomy Z98.890 Hypertension I10 History of throat cancer Z85.819 Aspiration pneumonia J69.0 Aspiration pneumonia type: due to vomit Laterality: bilateral Lung location: lower lobe of lung REUBEN (acute kidney injury) N17.9
== END 2022-01-07 14:41 | disposition home or self-care (01) | DRG 391 ==
LOC: ED 10:28 → SUATTDRO 13:51 → EDINP 13:51 → 2S 16:59